=== PATIENT | male | born 1945 | race African-American/Black ===

== ENCOUNTER 2017-06-14 16:58 | Inpatient (IN) | payer BC, MEDICARE ==
[2017-06-14 17:48] LABS: #Eosinphils 0.2 thou/uL (0.0-0.7); #Lymphocytes 1.4 thou/uL (1.20-3.40); #Monocytes 0.5 thou/uL (0.11-0.59); #Neutrophils 4.3 thou/uL (1.40-6.50); %Basophils 0.5 % (0.0-1.0); %Eosinophils 2.4 % (0.0-10.0); %Lymphocytes 22.2 % (21.0-51.0); %Monocytes 7.7 % (0.0-10.0); Hematocrit 31.5 % (42.0-52.0); Mean Platelet Volume 7.7 fL (7.4-10.4); Red Blood Cell (RBC) Count 3.18 mill/uL (4.70-6.10); White Blood Cell (WBC) Count 6.3 thou/uL (4.8-10.8)
[2017-06-14 18:13] LABS: CK (CPK) 78 U/L (30-200); Lipase 91 U/L (8-78)
[2017-06-14 18:17] LABS: Troponin I 0.058 ng/mL (< 0.028)
[2017-06-14 18:18] LABS: ALT (SGPT) 16 U/L (8-55); AST (SGOT) 7 U/L (5-34); Alkaline Phosphatase 52 U/L (40-150); Anion Gap 25 mmol/L (10-20); BUN (Urea Nitrogen) 65 mg/dL (8.4-25.7); Bilirubin, Total 0.8 mg/dL (0.2-1.2); Calc. Creatinine Clearance 0 mL/min (70-130); Calcium 8.5 mg/dL (7.8-10.44); Carbon Dioxide 23 mmol/L (23-31); Chloride 101 mmol/L (98-107); Estimated GFR-MDRD 3; Protein, Total 6.7 g/dL (5.8-8.1)
[2017-06-14 18:45] LABS: Prothrombin Time 14.2 SEC (12.0-14.7)
[2017-06-14 18:46] LABS: PTT 27.2 SEC (22.9-36.1)
--- NOTE | 2017-06-14 19:11 | RAD ---
SINGLE VIEW OF THE CHEST: 06/14/17 COMPARISON: 10/15/14 HISTORY: Weakness. FINDINGS: Single view of the chest shows a normal sized cardiomediastinal silhouette. There is no evidence of consolidation, mass, or pleural effusion. The bones are unremarkable. IMPRESSION: No evidence of acute cardiopulmonary disease. POS: [facility]
--- NOTE | 2017-06-14 20:12 | PDOC.EVN ---
Event Note - Event Note Event Note: [id number] h&p dictated 1. ESRD 2. H/O HTN 3. AOCD 4. Secondary hyperparathyroidism plan: see orders
[2017-06-14] MEDS ORDERED: Acetaminophen 325 MG TAB PO PRN ×2 (20:13→23:44)
[2017-06-14] MEDS ORDERED: Ondansetron HCl/PF 4 MG/2 ML Vial IVP PRN (20:13)
[2017-06-14] MEDS ORDERED: Tamsulosin HCl 0.4 MG CAP PO SCH ×2 (21:00→23:59)
[2017-06-14] MEDS: Heparin 5,000 UNITS/ML VIAL SC SCH (23:20)
[2017-06-14] MEDS: Mirtazapine 15 MG TAB PO SCH (23:20)
[2017-06-14] MEDS ORDERED: HYDROcodone/Acetaminophen 5/325 mg Tablet PO PRN (23:44)
[2017-06-14] MEDS ORDERED: Lorazepam 2 MG/ML VIAL SLOW IVP PRN (23:44)
[2017-06-14] MEDS ORDERED: Zolpidem Tartrate 5 MG TAB PO PRN (23:44)
[2017-06-14] MEDS ORDERED: Ondansetron ODT 4 MG TAB PO PRN (23:44)
--- NOTE | 2017-06-15 04:27 | HP ---
PRIMARY CARE PHYSICIAN: Dr. Josh Pollock CHIEF COMPLAINT: Decrease in appetite, metallic taste in my mouth and peritoneal dialysis is not angelo fficient. HISTORY OF PRESENT ILLNESS: Mr. Hutton is a 71-year-old gentleman that has a history of end-stage re nal disease on peritoneal dialysis. He also has a history of hypertension and atrial fibrillation o n chronic anticoagulation. He was in his usual state of health until recently when he began having a metallic taste in his mouth as well as a poor appetite. He also says that his global climate change analyst says t hat the peritoneal dialysis was not clearing his system the way it should and wants him to be conver jinny to hemodialysis. He had some routine lab work done and Dr. Mckinley asked that he be admitted. The patient says that he has no other complaints. He denies feeling weak as it was stated in the em ergency room records and was actually quite upset that that was listed, but says mainly it was prima rily the metallic taste in his mouth. REVIEW OF SYSTEMS: CONSTITUTIONAL: There have been no fevers, chills, no night sweats, no weight loss. HEENT: No headaches, no dizziness, no visual changes, no sore throat, rhinorrhea, neck pain, no rosa nopathy. PULMONARY: No hemoptysis, no cough, no wheezing. CARDIOVASCULAR: He denies any chest pain, no shortness of breath, no PND, no orthopnea. GASTROINTESTINAL: No abdominal pain, no nausea, no vomiting, no change in bowels. GENITOURINARY: No urinary frequency, hematuria or hesitancy. NEUROLOGIC: No focal weakness, numbness or seizures. PSYCHIATRIC: No symptoms of anxiety or depression. SKIN AND INTEGUMENT: No skin changes. No rash. PAST MEDICAL HISTORY: Significant for BPH, hypertension, atrial fibrillation, end-stage renal disea se on hemodialysis. PAST SURGICAL HISTORY: He has right knee surgery, tonsillectomy. SOCIAL HISTORY: He is . He is a non-smoker, nondrinker. He has 4 children. ALLERGIES: No known drug allergies. FAMILY HISTORY: No history of any inheritable diseases. MEDICATIONS: He stated they were in the records and these include Eliquis 2.5 mg once a day, mirtaz apine 15 mg daily, Avodart 0.5 mg daily, Fosrenol 1000 mg 3 times a day, Renvela 800 mg twice a day, Dialyvite 800 mg daily, metoprolol extended release 25 mg daily, vitamin D 77/400 daily, Sensipar 6 0 mg daily, Calcitriol 0.5 mg daily. PHYSICAL EXAMINATION: GENERAL: He is alert and oriented. He appears to be in no distress. VITAL SIGNS: Blood pressure was 116/65, heart rate 105, respiratory rate of 18. HEENT: Pupils are equal, round, and reactive. Extraocular muscles are intact. Sclerae are anicter ic. Throat no erythema, no exudates. NECK: No adenopathy, no bruits. LUNGS: Clear, no wheezing, no rales. CARDIOVASCULAR: His heart rate is irregular, slightly tachycardic. There are no murmurs, clicks or rubs. ABDOMEN: Soft, obese, it is nontender, nondistended. Positive for bowel sounds. No rebound, no gu arding. EXTREMITIES: There is no edema. NEUROLOGICALLY: The exam is nonfocal. SIGNIFICANT LABORATORY RESULTS: Sodium 144, potassium 4.9, chloride is 105, CO2 is 23, BUN 55, crea tinine 17.69, glucose is 91. White blood cell count 6.3, hemoglobin 10.5, hematocrit 31.5, platelet count is 253. INR is 1.1. ASSESSMENT AND PLAN: This is a 71-year-old gentleman who his global climate change analyst wishes to place him on he modialysis. We will therefore admit him to the medical floor. [facility] and [facility] Dr. Aden in the a.m. for a temporary dialysis catheter placement. The patient say s his last doses of Xarelto was about 2 or 3 days ago. He says he had not been taking it. We will continue to hold this until after the procedure and will also restart his other home medications for hypertension and BPH post procedure as well. In the interim, we will place him on p.r.n. medicatio ns for blood pressure.
[2017-06-15 04:42] LABS: #Eosinphils 0.1 thou/uL (0.0-0.7); #Lymphocytes 1.5 thou/uL (1.20-3.40); #Monocytes 0.6 thou/uL (0.11-0.59); #Neutrophils 3.8 thou/uL (1.40-6.50); %Basophils 0.8 % (0.0-1.0); %Eosinophils 1.9 % (0.0-10.0); %Lymphocytes 24.9 % (21.0-51.0); %Monocytes 9.1 % (0.0-10.0); Hematocrit 27.8 % (42.0-52.0); Mean Platelet Volume 7.4 fL (7.4-10.4); Red Blood Cell (RBC) Count 2.81 mill/uL (4.70-6.10)
[2017-06-15 05:07] LABS: Anion Gap 25 mmol/L (10-20); BUN (Urea Nitrogen) 73 mg/dL (8.4-25.7); BUN/Creatinine Ratio 3.94; Calc. Creatinine Clearance 7 mL/min (70-130); Calcium 8.1 mg/dL (7.8-10.44); Carbon Dioxide 25 mmol/L (23-31); Chloride 100 mmol/L (98-107); Estimated GFR-MDRD 3
[2017-06-15 05:20] LABS: Phosphorus 9.4 mg/dL (2.3-4.7)
--- NOTE | 2017-06-15 06:20 | HP ---
DATE OF ADMISSION: 06/14/2017 CHIEF COMPLAINT: Abnormal labs. HISTORY OF PRESENT ILLNESS: The patient is 71-year-old male with past medical history of end-stage renal disease on peritoneal dialysis, now brought to the hospital because of abnormal labs. According to the patient, he has decreased KT/V for the PD so the patient was brought to the hospital for initiation of hemodialysis. Patient complains of metallic taste in the mouth for the past few weeks and also complains of loss of appetite and nausea. Denies any dyspnea. Denies any chest pain, denies any palpitations, denies any swelling of the lower extremities. Denies any dizziness. PAST MEDICAL HISTORY: ESRD, hypertension, secondary hyperparathyroidism, anemia of chronic disease. SOCIAL HISTORY: Denies smoking, denies alcohol, denies any drugs. PAST SURGICAL HISTORY: PD catheter placement. MEDICATIONS: Reviewed. ALLERGIES: No known drug history. REVIEW OF SYSTEMS: CONSTITUTIONAL: Positive for fatigue. EYES: Denies any problems. EARS AND NOSE: Negative. NECK: Denies any neck pain. CARDIOVASCULAR: Denies any chest pain, denies palpitations. RESPIRATORY: Denies any dyspnea. Denies any cough. GASTROINTESTINAL: Positive for nausea. GENITOURINARY: Denies dysuria. MUSCULOSKELETAL: Denies any joint deformities. INTEGUMENTARY: Denies any rash. PSYCHIATRIC: Denies anxiety. All other review of systems are reviewed and are negative. PHYSICAL EXAMINATION: CONSTITUTIONAL/VITAL SIGNS: At the time of H\T\P performed, blood pressure is 120/70, afebrile, respiration rate 18, pulse ox 97% on room air. GENERAL: The patient appears comfortable. HEENT: Eyes patent. Nose normal. Ears normal. Teeth intact. Tongue is moist. NECK: Supple, no JVD. CARDIOVASCULAR SYSTEM: S1, S2 present, tachycardic. No murmurs, no rubs, no gallops. RESPIRATORY SYSTEM: No wheezing, no rhonchi. Breath sounds bilaterally, diminished at bases. GASTROINTESTINAL: Soft, nontender, no guarding, no organomegaly, no masses felt. Positive for PD catheter. MUSCULOSKELETAL: Trace edema. PSYCHIATRIC: Mood appears good. CRANIAL NERVE SYSTEM: Awake, follows commands. Speech clear. LABORATORY DATA: At the time of H\T\P performed; white count 6.3, hemoglobin 10.5, platelet count 253. PT 14.0, INR 1.1. BMP showed sodium 144, potassium 4.9, chloride 101, CO2 23, BUN of 65, creatinine 7.69. Troponin 0.058. Lipase 91. ASSESSMENT AND PLAN: The patient is 71-year-old male. 1. End-stage renal disease, plan to consult Nephrology to evaluate the patient and possible Vascular Surgery consult for the hemodialysis catheter. 2. History of hypertension. Monitor blood pressure. Continue blood pressure medications. 3. Anemia of chronic disease. Monitor hemoglobin and continue MONTEZ agent. 4. Secondary hyperparathyroidism. Continue home medications. Renal diet. 5. History of benign prostatic hypertrophy. Continue Flomax. The case was discussed in detail with the patient. [facility]
[2017-06-15] MEDS: Sevelamer Carbonate 800 MG TAB PO SCH ×3 (08:00→21:05)
[2017-06-15] MEDS ORDERED: Sevelamer Carbonate 800 MG TAB PO SCH (08:00)
--- NOTE | 2017-06-15 08:15 | HP ---
HISTORY OF PRESENT ILLNESS: Mr. Michael Hutton is a 71-year-old male patient who is on peritoneal linda lysis, has previously been associated with [facility] in [place], previously dialyzing Tuesday, , Tuesday prior to starting peritoneal dialysis. The patient had a right arm fistula that was placed in 09/2014 that thrombosed and this was converted on 12/2014 to dialysis graft inflow ce phalic vein segment from the proximal radial artery. That thrombosed and on 01/28/2015, I performed a thrombectomy, right arm graft revision arterial inflow from the proximal radial artery to the bra chial artery. He had subsequent interventions with problems in axillary vein graft anastomosis. He was converted to peritoneal dialysis with a laparoscopic peritoneal dialysis catheter placement, le ft Rodriguez fistula placed. This Rodriguez fistula thrombosed. He is now admitted by Dr. Mckinley with i nadequate peritoneal dialysis. I have been asked to see him regarding conversion to hemodialysis. In the emergency room, left antecubital IV was placed. On entering the room, I immediately removed this. Plan at this time is to place a hemodialysis catheter today and then Tuesday, 2 days from now, plan removal of his peritoneal dialysis catheter and place a left arm fistula or prosthetic graft. He understands the risks and benefits and consents. He is unfortunately held his Eliquis in the few days. PAST MEDICAL HISTORY: Hypertension, end-stage renal disease, previously associated [place] dialysis . Cardiomyopathy, ejection fraction 35%-40%, followed Dr. Rahman. On 09/2014, nuclear cardiac stre ss test, 43% ejection fraction, no ischemia. Secondary hyperparathyroidism, chronic atrial fibrilla tion on anticoagulation and Eliquis held as noted above, BPH followed by Urology, history of agent o range exposure, history of asthma, morbid obesity. PAST SURGICAL HISTORY: Right arm fistula established and converted to a prosthetic graft with subse quent revisions of arterial inflow from the proximal radial artery to brachial artery, and subsequen t interventions unsuccessful in salvaging the graft exhausting the right upper arm access. Left wri st Rodriguez fistula and laparoscopic peritoneal dialysis catheter placement in the past. Cystoscopies in the past. TOBACCO: None. ALCOHOL: None. MEDICATIONS: Sensipar 60 mg a day, vitamin D 2000 units every day, Calcitriol 0.5 mcg every day, me toprolol 25 mg b.i.d., folic acid daily, Fosrenol 1000 mg t.i.d., Avodart 0.5 mg p.o. daily, Rapaflo 4 mg p.o. a.m., Remeron 15 mg daily, Eliquis 2.5 mg daily and held the last 2 days, Renvela 800 mg p.o. b.i.d. REVIEW OF SYSTEMS: [place] otherwise noncontributory except as noted above. PHYSICAL EXAMINATION: VITAL SIGNS: 6 foot tall, 283 pounds, 38 BMI, 98.5 degrees, 104, 127/78. HEENT: Unremarkable. LUNGS: Clear to auscultation. CARDIAC: Irregular, irregular. ABDOMEN: Soft, obese. Peritoneal dialysis catheter in place. EXTREMITIES: Unremarkable. Left antecubital IV removed. A right upper arm dialysis graft thrombos ed, left Rodriguez fistula thrombosed. LABORATORY DATA: Sodium 145, potassium 4.8, BUN, creatinine, GFR changes of end-stage renal disease , phosphorus 9.4, white count 6, hemoglobin 9.1. ASSESSMENT AND PLAN: Inadequate peritoneal dialysis. We will plan placement of a hemodialysis cath eter today to initiate hemodialysis. We will plan removal of his peritoneal dialysis catheter and s tart from the left arm fistula or graft on Tuesday. We will continue to hold his Eliquis. Risks of infection, bleeding, reoperation, thrombosed fistula or graft, revision, future revisions, possible transposition discussed and he consents.
--- NOTE | 2017-06-15 08:36 | CON ---
DATE OF CONSULTATION: 06/14/2017 CONSULTING PHYSICIAN: Dr. Urban. REASON FOR CONSULTATION: End-stage renal disease evaluation and care. REASON FOR ADMISSION: Weakness. HISTORY OF PRESENT ILLNESS: A 71-year-old male with history of end-stage renal disease, BPH, hypert ension, who came to the hospital with weakness and the patient is having peritoneal dialysis and it is not being adequate and has been complaining more of uremic symptoms including nausea, vomiting, d ry mouth, and poor appetite, and he was sent for further evaluation. The patient possibly needs to switch to hemodialysis for better clearance and plan is to have a dialysis access placement. No chest pain or palpitation reported. No fever or chills. No abdominal pain. PAST MEDICAL HISTORY: Positive for end-stage renal disease, on peritoneal dialysis currently; atria l fibrillation; hypertension; BPH. PAST SURGICAL HISTORY: Dialysis access and graft placement in both arms and peritoneal dialysis cat heter placement; tonsillectomy; right knee surgery. HOME MEDICATIONS: Include Flomax, Renvela, Remeron, metoprolol, [place], folic acid, finasteride, Sen sipar, Eliquis. ALLERGIES: No known drug allergies. SOCIAL HISTORY: No smoking, alcohol, or drug use. FAMILY HISTORY: No history of any kidney disease. REVIEW OF SYSTEMS: The following complete review of systems was negative, unless otherwise mentione d in the HPI or below: Constitutional: Weight loss or gain, ability to conduct usual activities. Skin: Rash, itching. Eyes: Double vision, pain. ENT/Mouth: Nose bleeding, neck stiffness, pain, tenderness. Cardiovascular: Palpitations, dyspnea on exertion, orthopnea. Respiratory: Shortness of breath, wheezing, cough, hemoptysis, fever or night sweats. Gastrointestinal: Poor appetite, abdominal pain, heartburn, nausea, vomiting, constipation, or diar ghazala. Genitourinary: Urgency, frequency, dysuria, nocturia. Musculoskeletal: Pain, swelling. Neurologic/Psychiatric: Anxiety, depression. Allergy/Immunologic: Skin rash, bleeding tendency. PHYSICAL EXAMINATION: GENERAL: This is a well-built male, in no apparent distress. VITAL SIGNS: Temperature 97.9, pulse 106, respiratory rate 18, blood pressure 88/57. HEENT: Atraumatic, normocephalic. Oral mucosa is moist. NECK: Supple, no masses. CARDIOVASCULAR: S1, S2 heard. Rate and rhythm regular. RESPIRATORY: Clear. GASTROINTESTINAL: Abdomen is soft. MUSCULOSKELETAL: 1+ edema. DERMATOLOGIC: No skin rash. NEUROLOGIC: Alert and awake. PSYCHIATRIC: Mood and affect normal. LABORATORY DATA: Hemoglobin is 10.5. Potassium is 4.9, BUN is 65, creatinine is 17.6. ASSESSMENT AND PLAN: 1. End-stage renal disease. The patient had a peritoneal dialysis failure and plan is to start on hemodialysis. Dr. Aden was consulted, plan is to leave him n.p.o. Check vein mapping and possibl e dialysis access placement tomorrow and started on hemodialysis. Case management consult for outpa tient dialysis placement. 2. Edema, controlled. 3. Hypertension, currently hypotensive. Monitor. 4. Anemia. I will continue outpatient medications. 5. Hyperphosphatemia, limit the potassium and phosphorus in the diet. 6. Hyperparathyroidism. Continue Sensipar and we will follow. 7. Benign prostatic hypertrophy. Continue Flomax. Plan is to switch patient to hemodialysis and case management consult. Thank you for the consult. We will follow.
--- NOTE | 2017-06-15 08:44 | ULT ---
BILATERAL UPPER EXTREMITY VENOUS DUPLEX STUDY FOR VENOUS MAPPING: INDICATIONS: Assess adequacy of veins of the upper extremities for possible dialysis fistula placement. The cephalic vein and basilic vein in both upper extremities were evaluated with diameter at differe nt segments. RIGHT UPPER EXTREMITY CEPHALIC BASILIC AXILLA 1.4 mm 1.0 mm PROXIMAL HUMERUS 0.9 mm 1.1 mm MID HUMERUS 1.6 mm 1.1 mm DISTAL HUMERUS 1.7 mm 1.2 mm ELBOW 0.9 mm 1.0 mm MID FOREARM 1.3 mm 0.7 mm RIGHT BRACHIAL ARTERY: 5.9 RIGHT RADIAL ARTERY: 2.3 RIGHT ULNAR ARTERY: 1.5 LEFT UPPER EXTREMITY CEPHALIC BASILIC AXILLA 2.2 mm 4.6 mm PROXIMAL HUMERUS 2.5 mm 4.5 mm MID HUMERUS 3.0 mm 3.7 mm DISTAL HUMERUS THROMBOSED 3.0 mm ELBOW 2.8 mm 1.2 mm MID FOREARM 2.9 mm 2.5 mm LEFT BRACHIAL ARTERY: 4.5 LEFT RADIAL ARTERY: 2.8 LEFT ULNAR ARTERY: 1.8 POS: [facility]
[2017-06-15] MEDS: Heparin 5,000 UNITS/ML VIAL SC SCH ×3 (09:00→21:07)
[2017-06-15] MEDS ORDERED: Finasteride 5 MG TAB PO SCH (09:00)
[2017-06-15] MEDS ORDERED: Cinacalcet HCl 30 MG TAB PO SCH (09:00)
[2017-06-15] MEDS ORDERED: Heparin 5,000 UNITS/ML VIAL ONE (09:16)
[2017-06-15] MEDS ORDERED: Bupivacaine HCl 0.5%/Epinephrine 1:200,000/PF 30 ml Vial ONE (09:16)
[2017-06-15] MEDS ORDERED: Sodium Chloride 0.9% 20 ML ONE (09:16)
[2017-06-15] MEDS ORDERED: Fentanyl 100 MCG/2 ML VIAL ONE (09:19)
[2017-06-15] MEDS ORDERED: Diprivan 40 ML ONE (09:19)
[2017-06-15] MEDS ORDERED: Heparin 10,000 UNITS/1 ML VIAL ONE (09:22)
[2017-06-15] MEDS ORDERED: Lidocaine 1% PF 5 ML VIAL ONE (09:41)
[2017-06-15] MEDS ORDERED: ePHEDrine/0.9% NaCl/PF SYRINGE 50 mg/10 ml ONE (09:41)
[2017-06-15] MEDS ORDERED: PHENYLEPHRINE-NS 100 MCG/ML 10 ML SYRINGE ONE (09:41)
[2017-06-15] MEDS ORDERED: Ondansetron HCl/PF 4 MG/2 ML Vial ONE (09:41)
[2017-06-15] MEDS ORDERED: Ondansetron HCl/PF 4 MG/2 ML Vial IVP PRN (09:59)
[2017-06-15] MEDS ORDERED: Acetaminophen 500 MG TAB PO PRN (10:42)
[2017-06-15] MEDS ORDERED: traMADol HCl 50 MG TAB PO PRN ×2 (10:42)
[2017-06-15] MEDS ORDERED: Heparin 10,000 UNITS/ 10 ML VIAL ONE (11:00)
--- NOTE | 2017-06-15 11:37 | OP ---
DATE OF PROCEDURE: 06/15/2017 PREOPERATIVE DIAGNOSIS: End-stage renal disease, peritoneal dialysis status with inadequate periton eal dialysis. POSTOPERATIVE DIAGNOSIS: End-stage renal disease, peritoneal dialysis status with inadequate perito dale dialysis with occluded right internal jugular vein outflow, retroclavicular. PROCEDURE: Successful cannulation right internal jugular vein using ultrasound, but the J wire woul d not thread. Successful left IJ cuffed tunnel hemodialysis catheter, angiodynamics, dynamics precu rved, ultrasound fluoroscopy used for placement. SURGEON: Dr. Rashi Aden ANESTHESIA: Intravenous sedation and local 0.5% Marcaine with epinephrine, 30 mL, mixed with 2% Xyl ocaine, 10 mL. PROCEDURE: The patient was taken to the operating room where under intravenous sedation, his neck a nd chest were clipped of hair, prepared with chloraprep, draped in routine fashion. Local anestheti c mixture 0.5% Marcaine with epinephrine 30 mL, mixed with 2% Xylocaine 10 mL infiltrated into skin and subcutaneous tissue about the operative sites. Using ultrasound guidance, right internal jugula r vein was cannulated with trocar catheter. J-wire threaded, but would not thread beyond retroclavi cular area, indicative of occlusion from previous catheters. Left internal jugular vein was cannula jinny with trocar catheter. Under ultrasound guidance and J-wire threaded. Trocar catheter removed. Skin incised and enlarged sharply. Stab incision made over the left chest. Using the tunneling de vice, the precurved angiodynamics cuffed tunnel hemodialysis catheter tunneled between the two incis ions, placing the fabric cuff beneath the skin exit site and catheter secured with 2 interrupted sut ures of 3-0 nylon. Smaller and medium sized dilators placed over the J-wire into the internal jugul ar vein and removed. Dilator and pull-away sheath placed over the J-wire into the superior vena cav a under fluoroscopic visualization, removed the J wire and dilator and catheter placed with a pull-a way sheath into the superior vena cava under fluoroscopic visualization and pull-away sheath removed . Fluoroscopic images revealed good line placement. Each port aspirated blood and flushed with inj ectable saline and heparinized saline solution 1000 units heparin per mL indicated volume of the por t. Platysma approximated with 4-0 Monocryl, skin with subdermal 4-0 Monocryl and DermaGlue and ster ile dressings applied. Patient tolerated the procedure well. The plan at this time is to remove his peritoneal dialysis catheter in 48 hours on Tuesday and placem ent of a new left fistula. He has had a previous right arm fistula that required revision to a reji t with cephalic vein inflow and revision of that arterial inflow from the proximal radial artery to the brachial vein and then multiple interventions of the graft vein, axillary anastomosis leading to failure of the graft. His right arm is exhausted for dialysis access. He has had a previous left Rodriguez fistula that thrombosed. Plan is to explore his left antecubital area to place a primary fis carito or possibly a prosthetic graft pending operative findings.
--- NOTE | 2017-06-15 12:44 | RAD ---
CHEST ONE VIEW UPRIGHT PORTABLE: History: 71-year-old male on dialysis with left venous access dialysis port placement. Comparison: 06-14-17 FINDINGS: Left dual-lumen venous access catheter is noted. Heart size is normal. The lungs are clear. No pneum othorax or other acute process. IMPRESSION: Placement of a left dual-lumen venous access catheter without pneumothorax or other complications. POS: [facility]
--- NOTE | 2017-06-15 15:28 | PDOC.PN ---
- Subjective Encounter Start Date: 06/15/17 Encounter Start Time: 15:26 Mr. Hutton is seen in dialysis, and he does not have any complaints other than his bed is uncomfortable. - Objective Resuscitation Status: Resuscitation Status FULL:Full Resuscitation MAR Reviewed: Yes Vital Signs & Weight: Vital Signs (12 hours) Temp Pulse Resp BP Pulse Ox 06/15/17 04:20 98.5 F 104 H 20 127/78 93 L Weight Admit Weight 281 lb Weight 283 lb 4.8 oz I&O: 06/14/17 06/15/17 06/16/17 06:59 06:59 06:59 Intake Total 240 Balance 240 Result Diagrams: 06/15/17 04:14 06/15/17 04:14 Phys Exam - Physical Examination HEENT: PERRLA Respiratory: no wheezing, no rales, no rhonchi, clear to auscultation bilateral Cardiovascular: RRR, no significant murmur Gastrointestinal: soft, positive bowel sounds Musculoskeletal: no edema Dx/Plan (1) Hypertension Code(s): I10 - ESSENTIAL (PRIMARY) HYPERTENSION Status: Acute (2) BPH (benign prostatic hyperplasia) Code(s): N40.0 - BENIGN PROSTATIC HYPERPLASIA WITHOUT LOWER URINRY TRACT SYMP Status: Acute (3) ESRD (end stage renal disease) on dialysis Code(s): N18.6 - END STAGE RENAL DISEASE; Z99.2 - DEPENDENCE ON RENAL DIALYSIS Status: Acute (4) Atrial fibrillation Code(s): I48.91 - UNSPECIFIED ATRIAL FIBRILLATION Status: Acute - Plan * ESRD- patient is being transitioned to Hemodialysis from PD * He has had the temporary dialysis catheter placed * HTN - blood pressure is stable * AFIB- heart rate is stable .
[2017-06-15] MEDS: Folic Acid/Vit B Comp W-C PO SCH (17:09)
[2017-06-15] MEDS: Famotidine 20 MG TAB PO SCH (17:09)
[2017-06-15] MEDS: Cinacalcet HCl 30 MG TAB PO SCH (17:09)
[2017-06-15] MEDS: Finasteride 5 MG TAB PO SCH (17:14)
[2017-06-15] MEDS: Tamsulosin HCl 0.4 MG CAP PO SCH (21:07)
[2017-06-15] MEDS: Mirtazapine 15 MG TAB PO SCH (21:07)
--- NOTE | 2017-06-15 22:01 | PRG ---
DATE OF SERVICE: 06/15/2017 SUBJECTIVE: Patient was seen and examined at bedside and overnight events noted. Patient denies an y shortness of breath or chest pain or palpitation. No history of nausea or vomiting or diarrhea or fever or chills or cramps. OBJECTIVE: GENERAL: This is a well-built male in no apparent distress. VITAL SIGNS: Temperature 97.5. Pulse 105. Respiratory rate 17. Blood pressure 124/85. HEENT: Atraumatic and normocephalic. Oral mucosa is moist. NECK: Supple. CARDIOVASCULAR: S1, S2 heard. Rate and rhythm regular. RESPIRATORY: Clear to auscultation. GASTROINTESTINAL: Abdomen is soft. MUSCULOSKELETAL: No tenderness. No edema. DERMATOLOGIC: No skin rash. NEUROLOGIC: Alert and awake and oriented x3. No focal neurologic deficits. Moving all the extremi ties. PSYCHIATRIC: Mood and affect normal. LABORATORY DATA: Potassium is 4.8, phosphorus is 9.4, and BUN 73. ASSESSMENT AND PLAN: 1. End-stage renal disease with peritoneal dialysis failure. Plan is to start on hemodialysis. I appreciate help from Surgery. The patient had tunneled dialysis catheter today. Plan is to remove peritoneal dialysis catheter and possibly place a graft on his left arm on Tuesday. We will start on dialysis. 2. Uremia. We will start dialysis. 3. Hyperphosphatemia. Continue binder and low phosphorus diet. The patient is noncompliant and is asking for a regular diet. 4. Hyperparathyroidism, on Sensipar. 5. Benign prostatic hypertrophy. 6. Edema, controlled. 7. Hypertension. We will monitor. 8. Anemia. Continue Epogen as tolerated. 9. Plan is to continue on dialysis on Tuesday, , Tuesday. We will have dialysis 3 hours t denny and tomorrow and then TTS as tolerated. Request case management arranged outpatient dialysis clarissa lyn.
[2017-06-16] MEDS: Heparin 5,000 UNITS/ML VIAL SC SCH ×3 (09:19→21:59)
[2017-06-16] MEDS: Folic Acid/Vit B Comp W-C PO SCH (09:20)
[2017-06-16] MEDS: Cinacalcet HCl 30 MG TAB PO SCH (09:20)
[2017-06-16] MEDS: Famotidine 20 MG TAB PO SCH (09:20)
[2017-06-16] MEDS: Finasteride 5 MG TAB PO SCH (09:21)
[2017-06-16] MEDS: Sevelamer Carbonate 800 MG TAB PO SCH ×3 (09:24→17:28)
--- NOTE | 2017-06-16 11:20 | PDOC.PN ---
- Subjective Encounter Start Date: 06/16/17 Encounter Start Time: 09:45 Pt seen and examined, Chart reviewe din its entriety. Diamond sis my first visit with this patient. Pt on the telephone with the [employer]/ Affairs. No acute events overnight, no new complaints. Permcath in place, to HD later this morning, no F/C, no N/V/d/C, no CP, no SOB - Objective Resuscitation Status: Resuscitation Status FULL:Full Resuscitation MAR Reviewed: Yes Vital Signs & Weight: Vital Signs (12 hours) Temp Pulse Resp BP Pulse Ox 06/16/17 10:15 97.8 F 96 20 137/78 100 06/16/17 04:00 97.8 F 89 18 91/45 L 90 L 06/16/17 00:00 98.9 F 84 20 98/57 L 95 Weight Admit Weight 281 lb Weight 283 lb I&O: 06/15/17 06/16/17 06/17/17 06:59 06:59 06:59 Intake Total 240 600 Output Total 1200 Balance 240 -600 Result Diagrams: 06/15/17 04:14 06/15/17 04:14 Radiology Reviewed by me: Yes EKG Reviewed by me: Yes Phys Exam - Physical Examination Constitutional: NAD HEENT: PERRLA, moist MMs, sclera anicteric, oral pharynx no lesions Neck: no nodes, no JVD, supple, full ROM Respiratory: no wheezing, no rales, no rhonchi Cardiovascular: RRR, no significant murmur, no rub Gastrointestinal: soft, non-tender, no distention, positive bowel sounds Musculoskeletal: pulses present, edema present Neurological: non-focal, normal sensation, moves all 4 limbs Lymphatic: no nodes Psychiatric: normal affect, A&O x 3 Skin: no rash, normal turgor, cap refill <2 seconds Deviation from normal: [facility] site C/D/I Dx/Plan (1) Atrial fibrillation Code(s): I48.91 - UNSPECIFIED ATRIAL FIBRILLATION Status: Acute Qualifiers: Atrial fibrillation type: paroxysmal Qualified Code(s): I48.0 - Paroxysmal atrial fibrillation Comment: rate controlled, CCM (2) BPH (benign prostatic hyperplasia) Code(s): N40.0 - BENIGN PROSTATIC HYPERPLASIA WITHOUT LOWER URINRY TRACT SYMP Status: Chronic Qualifiers: Lower urinary tract symptom presence: symptoms present Lower urinary tract symptom detail: incomplete bladder emptying Qualified Code(s): N40.1 - Benign prostatic hyperplasia with lower urinary tract symptoms; R39.14 - Feeling of incomplete bladder emptying (3) Hypertension Code(s): I10 - ESSENTIAL (PRIMARY) HYPERTENSION Status: Chronic Qualifiers: Hypertension type: essential hypertension Qualified Code(s): I10 - Essential (primary) hypertension (4) Cardiomyopathy Code(s): I42.9 - CARDIOMYOPATHY, UNSPECIFIED Status: Chronic Qualifiers: Cardiomyopathy type: non-obstructive hypertrophic Qualified Code(s): I42.2 - Other hypertrophic cardiomyopathy (5) ESRD (end stage renal disease) on dialysis Code(s): N18.6 - END STAGE RENAL DISEASE; Z99.2 - DEPENDENCE ON RENAL DIALYSIS Status: Acute Comment: was on PD, now trnasitioning to HD. Case management arranging outpatient HD, Dr Mckinley following, will followup on their recommendaitons - Plan cont current plan of care, PT/OT, director social welfare * .
--- NOTE | 2017-06-16 18:41 | PRG ---
DATE OF SERVICE: 06/16/2017 Mr. Michael Hutton is doing well today. He is scheduled for placement of left arm fistula or graft. We were planning to remove his peritoneal dialysis catheter. The patient has reconsidered and is ho ping to keep it for a while, open to return, possibly the PD in the future, he is to talk to Dr. Joe ontiveros who is agreeable.
[2017-06-16] MEDS ORDERED: Epoetin (ESRD) 20,000 UNITS/ML IVP SCH (19:00)
[2017-06-16] MEDS: Mirtazapine 15 MG TAB PO SCH (21:58)
[2017-06-16] MEDS: Tamsulosin HCl 0.4 MG CAP PO SCH (21:59)
--- NOTE | 2017-06-16 22:00 | PRG ---
DATE OF SERVICE: 06/16/2017 SUBJECTIVE: Patient was seen and examined at bedside and overnight events noted. Patient denies any shortness of breath or chest pain or palpitation. No history of nausea or vomiting or diarrhea or fever or chills or cramps. OBJECTIVE: GENERAL: This is a well built male in no apparent distress. VITAL SIGNS: Temperature 97.8, pulse 96, respiratory rate 20, blood pressure 137/70. HEENT: Atraumatic, normocephalic. Oral mucosa is moist. NECK: Supple. CARDIOVASCULAR: S1 and S2 heard, rate and rhythm regular. RESPIRATORY: Clear to auscultation. GASTROINTESTINAL: Abdomen is soft. MUSCULOSKELETAL: No tenderness, no edema. DERMATOLOGIC: No skin rash. NEUROLOGIC: Alert and awake and oriented X3. No focal neurologic deficits. Moving all the extremities. PSYCHIATRIC: Mood and affect normal. LABORATORY DATA: Potassium is 4.8, BUN 73, creatinine is 18.4. ASSESSMENT AND PLAN: 1. End-stage renal disease. Continue on hemodialysis. 2. Uremia, better. 3. Hyperphosphatemia, limit phosphorus in the diet. 4. Benign prostatic hypertrophy. 5. Edema, controlled. 6. Hypertension. 7. Secondary hyperparathyroidism, continue on Sensipar. 8. Plan is to continue on dialysis as tolerated. Plan is to have dialysis today and then Tuesday, , and Tuesday as tolerated. Follow with case management for outpatient placement. [facility]
[2017-06-17 05:19] LABS: Anion Gap 16 mmol/L (10-20); BUN (Urea Nitrogen) 28 mg/dL (8.4-25.7); Calc. Creatinine Clearance 15 mL/min (70-130); Calcium 8.3 mg/dL (7.8-10.44); Carbon Dioxide 25 mmol/L (23-31); Chloride 103 mmol/L (98-107); Estimated GFR-MDRD 8
[2017-06-17] MEDS: Sevelamer Carbonate 800 MG TAB PO SCH ×3 (08:00→17:31)
[2017-06-17] MEDS: Cinacalcet HCl 30 MG TAB PO SCH ×2 (09:00→17:31)
[2017-06-17] MEDS: Famotidine 20 MG TAB PO SCH (09:00)
[2017-06-17] MEDS: Folic Acid/Vit B Comp W-C PO SCH (09:00)
[2017-06-17] MEDS: Heparin 5,000 UNITS/ML VIAL SC SCH ×3 (09:00→20:27)
[2017-06-17] MEDS: Finasteride 5 MG TAB PO SCH (09:00)
[2017-06-17] MEDS ORDERED: Fentanyl 100 MCG/2 ML VIAL ONE ×2 (09:46→10:32)
[2017-06-17] MEDS ORDERED: Midazolam HCl 2 mg/2 ml Vial ONE (09:46)
[2017-06-17] MEDS ORDERED: Protamine Sulfate 50 MG/5 ML VIAL ONE (10:26)
[2017-06-17] MEDS ORDERED: Bupivacaine HCl 0.5%/Epinephrine 1:200,000/PF 30 ml Vial ONE (10:26)
[2017-06-17] MEDS ORDERED: Heparin 5,000 UNITS/ML VIAL ONE (10:26)
[2017-06-17] MEDS ORDERED: Diprivan 60 ML ONE (10:45)
--- NOTE | 2017-06-17 10:49 | PDOC.PN ---
- Subjective Encounter Start Date: 06/17/17 Encounter Start Time: 09:00 -: old records requested/rev Patient seen and examined. No new complaints. No overnight events - Objective Resuscitation Status: Resuscitation Status FULL:Full Resuscitation MAR Reviewed: Yes Vital Signs & Weight: Vital Signs (12 hours) Temp Pulse Resp BP Pulse Ox 06/17/17 08:17 97.7 F 89 18 99/67 92 L 06/17/17 06:50 98.5 F 109 H 20 125/72 99 06/17/17 00:00 98.3 F 96 18 106/66 93 L Weight Admit Weight 281 lb Weight 283 lb I&O: 06/16/17 06/17/17 06/18/17 06:59 06:59 06:59 Intake Total 600 240 Output Total 1200 Balance -600 240 Result Diagrams: 06/15/17 04:14 06/17/17 04:43 Phys Exam - Physical Examination Constitutional: NAD HEENT: PERRLA, moist MMs, sclera anicteric Neck: no JVD, supple Respiratory: no wheezing, no rales, no rhonchi Cardiovascular: RRR, no significant murmur, no rub HD catheter+ Gastrointestinal: soft, non-tender, no distention, positive bowel sounds PD catheter + Musculoskeletal: no edema, pulses present Neurological: non-focal, normal sensation Lymphatic: no nodes Psychiatric: normal affect, A&O x 3 Skin: no rash, normal turgor Dx/Plan (1) Anemia of renal disease Code(s): D63.1 - ANEMIA IN CHRONIC KIDNEY DISEASE Status: Chronic (2) Atrial fibrillation Code(s): I48.91 - UNSPECIFIED ATRIAL FIBRILLATION Status: Chronic Qualifiers: Atrial fibrillation type: paroxysmal Qualified Code(s): I48.0 - Paroxysmal atrial fibrillation Comment: rate controlled, CCM (3) BPH (benign prostatic hyperplasia) Code(s): N40.0 - BENIGN PROSTATIC HYPERPLASIA WITHOUT LOWER URINRY TRACT SYMP Status: Chronic Qualifiers: Lower urinary tract symptom presence: symptoms present Lower urinary tract symptom detail: incomplete bladder emptying Qualified Code(s): N40.1 - Benign prostatic hyperplasia with lower urinary tract symptoms; R39.14 - Feeling of incomplete bladder emptying (4) Cardiomyopathy Code(s): I42.9 - CARDIOMYOPATHY, UNSPECIFIED Status: Chronic Qualifiers: Cardiomyopathy type: non-obstructive hypertrophic Qualified Code(s): I42.2 - Other hypertrophic cardiomyopathy (5) ESRD (end stage renal disease) on dialysis Code(s): N18.6 - END STAGE RENAL DISEASE; Z99.2 - DEPENDENCE ON RENAL DIALYSIS Status: Chronic Comment: was on PD, now trnasitioning to HD. Case management arranging outpatient HD, Dr Mckinley following, will followup on their recommendaitons (6) Hypertension Code(s): I10 - ESSENTIAL (PRIMARY) HYPERTENSION Status: Chronic Qualifiers: Hypertension type: essential hypertension Qualified Code(s): I10 - Essential (primary) hypertension (7) Obesity (BMI 30-39.9) Code(s): E66.9 - OBESITY, UNSPECIFIED Status: Chronic (8) Secondary hyperparathyroidism of renal origin Code(s): N25.81 - SECONDARY HYPERPARATHYROIDISM OF RENAL ORIGIN Status: Chronic - Plan cont current plan of care, delinquency prevention social worker * pt is now from PD to HD * today plan for AVF * tomorrow he can have outpt HD * if surgeon ok, we can discharge later today * medication reviewed as below * symptomatic treatment.. Review of Systems - Review of Systems ENT: negative: Ear Pain, Ear Discharge, Nose Pain, Nose Discharge, Nose Congestion, Mouth Pain, Mouth Swelling, Throat Pain, Throat Swelling, Other Respiratory: negative: Cough, Dry, Shortness of Breath, Hemoptysis, SOB with Excertion, Pleuritic Pain, Sputum, Wheezing Cardiovascular: negative: Chest Pain, Palpitations, Orthopnea, Paroxysmal Noc. Dyspnea, Edema, Light Headedness, Other Gastrointestinal: negative: Nausea, Vomiting, Abdominal Pain, Diarrhea, Constipation, Melena, Hematochezia, Other Genitourinary: negative: Dysuria, Frequency, Incontinence, Hematuria, Retention , Other Musculoskeletal: negative: Neck Pain, Shoulder Pain, Arm Pain, Back Pain, Hand Pain, Leg Pain, Foot Pain, Other - Medications/Allergies Allergies/Adverse Reactions: Allergies Allergy/AdvReac Type Severity Reaction Status Date / Time No Known Allergies Allergy Verified 06/14/17 22:51 Medications: Current Medications Acetaminophen (Tylenol) 650 mg PO Q4H PRN PRN Reason: Headache/Fever or Pain Acetaminophen (Tylenol) 1,000 mg PO Q6H PRN PRN Reason: Moderate to Severe Pain (6-10) Hydrocodone Bitart/Acetaminophen ([place] 5/325) 1 tab PO Q4H PRN PRN Reason: Moderate Pain (4-6) Cefazolin Sodium (Ancef) 2 gm SLOW IVP WILLCALL [facility] Stop: 06/17/17 23:59 Cinacalcet (Sensipar) 30 mg PO DAILY [facility] Last Admin: 06/16/17 09:20 Dose: 30 mg Epoetin Jose (Procrit) 5,000 units IVP TuThSa [facility] Last Admin: 06/16/17 18:14 Dose: 5,000 units Famotidine (Pepcid) 20 mg PO DAILY [facility] Last Admin: 06/16/17 09:20 Dose: 20 mg Finasteride (Proscar) 5 mg PO DAILY [facility] Last Admin: 06/16/17 09:21 Dose: Not Given Heparin Sodium (Porcine) (Heparin) 5,000 units SC TID [facility] Last Admin: 06/16/17 21:59 Dose: Not Given Hydralazine HCl (Apresoline) 10 mg SLOW IVP Q4H PRN PRN Reason: Systolic BP > 180 Lactulose (Lactulose) 20 gm PO DAILYPRN PRN PRN Reason: Constipation Lorazepam (Ativan) 0.5 mg SLOW IVP Q4H PRN PRN Reason: Anxiety/Agitation Metoprolol Succinate (Toprol Xl) 25 mg PO DAILY [facility] Last Admin: 06/17/17 05:47 Dose: 25 mg Mirtazapine (Remeron) 15 mg PO [facility] Last Admin: 06/16/17 21:58 Dose: 15 mg Ondansetron HCl (Zofran) 4 mg IVP Q6H PRN PRN Reason: Nausea/Vomiting Last Admin: 06/17/17 06:34 Dose: 4 mg Ondansetron HCl (Zofran Odt) 4 mg PO Q6H PRN PRN Reason: Nausea/Vomiting Sevelamer Carbonate (Renvela) 1,600 mg PO TID-[facility] Last Admin: 06/16/17 17:28 Dose: Not Given Tamsulosin HCl (Flomax) 0.4 mg PO [facility] Last Admin: 06/16/17 21:59 Dose: Not Given Tramadol HCl (Ultram) 50 mg PO Q12H PRN PRN Reason: Pain 1-5 Tramadol HCl (Ultram) 100 mg PO Q12H PRN PRN Reason: Pain 6-10 Vitamin B Complex/Vit C/Folic Acid (Nephro-Josy Tablet) 1 tab PO DAILY [facility] Last Admin: 06/16/17 09:20 Dose: 1 tab Zolpidem Tartrate (Ambien) 5 mg PO HSPRN PRN PRN Reason: Insomnia
[2017-06-17] MEDS ORDERED: PHENYLEPHRINE-NS 100 MCG/ML 10 ML SYRINGE ONE (11:21)
[2017-06-17] MEDS ORDERED: ePHEDrine/0.9% NaCl/PF SYRINGE 50 mg/10 ml ONE (11:21)
[2017-06-17 12:00] VITALS: BMI 38.3
[2017-06-17] MEDS ORDERED: Ondansetron HCl/PF 4 MG/2 ML Vial IVP PRN (12:14)
--- NOTE | 2017-06-17 12:18 | PRG ---
Patient Name: ANALISA EASON Date of service: 06/17/2017 Subjective: Patient was seen and examined at bedside and overnight events noted. Patient denies any shortness of breath or chest pain or palpitation. No history of nausea or vomiting or diarrhea or fever or chills or cramps. Objective: General: This is a well-built male in no apparent distress Vital signs: Temperature 97, pulse 69, respiratory 19, blood pressure 119/67. HEENT: Atraumatic, normocephalic. Oral mucosa is moist. Neck: Supple. Cardiovascular: S1 S2 heard. Rate and rhythm regular. Respiratory: Clear to auscultation. Gastrointestinal: Abdomen is soft. Musculoskeletal: No tenderness. No edema. Dermatologic: No skin rash. Neurologic: Alert and awake and oriented X3. No focal neurologic deficits. Moving all the extremi ties. Psychiatric: Mood and affect normal. LABORATORY DATA: Potassium is 4.4, BUN 28, creatinine 8.9 and 8.4. ASSESSMENT AND PLAN: 1. End-stage renal disease. Will continue hemodialysis. Good clearance with dialysis. 2. Edema, controlled. 3. Uremia, better. 4. Hypertension. 5. Anemia. We will continue on Epogen with dialysis. Plan is to continue on dialysis as tolerated. I talked with the [facility] in [place] and they have a chair for him. Okay to discharge from Nephrology standpoint if surgeon is okay.
[2017-06-17] MEDS ORDERED: Heparin 10,000 UNITS/ 10 ML VIAL ONE (13:11)
--- NOTE | 2017-06-17 14:19 | DIS ---
DATE OF ADMISSION: 06/14/2017 DATE OF DISCHARGE: 06/17/2017 PRIMARY CARE PHYSICIAN: Dr. Josh Pollock. DISCHARGE DISPOSITION: Home. PRIMARY DISCHARGE DIAGNOSES: 1. End-stage renal disease, converted from peritoneal dialysis to hemodialysis. 2. Status post hemodialysis catheter placement. 3. Status post arteriovenous fistula. SECONDARY DISCHARGE DIAGNOSES: Morbid obesity, secondary hyperparathyroidism of renal origin, anemia of renal disease, end-stage renal disease, hypertension , benign enlargement of prostate, cardiomyopathy, and paroxysmal atrial fibrillation. PRIMARY PROCEDURE/OPERATION: Hemodialysis tunneled catheter by Dr. Aden. AV fistula by Dr. Aden. RADIOLOGICAL INVESTIGATION: Marking ultrasound, chest x-ray was normal. SIGNIFICANT LABORATORY DATA: WBC 6.0, hemoglobin 9.1, MCV 99.1, platelet 217. INR 1.1. Sodium 140, potassium 4.4, BUN 28, creatinine 8.49, calcium 8.3, phosphorus 9.4. LFTs normal. Troponin 0.058 and lipase 91. DISCHARGE MEDICATIONS: Eliquis 2.5 mg p.o. daily, calcitriol 0.5 mcg p.o. daily , vitamin D3 2000 units p.o. daily, Sensipar 60 mg p.o. daily, Avodart 0.5 mg p.o. daily, Dialyvite one tablet p.o. daily, Fosrenol 1000 mg p.o. t.i.d., metoprolol 25 mg p.o. b.i.d., Remeron 15 mg p.o. daily, Renvela 800 mg p.o. b.i.d., and Rapaflo 4 mg p.o. daily. CONTRAINDICATIONS: None. CODE STATUS: FULL CODE. INPATIENT CONSULTANTS: Dr. Mckinley was following while in hospital. Dr. Aden was consulted for dialysis access. TEST RESULTS PENDING ON DISCHARGE: None. ALLERGIES: No known drug allergy. DISCHARGE PLAN: Post hospital, patient will follow up with primary care physician, Dr. Aden and Dr. Mckinley. Patient has outpatient hemodialysis scheduled on Tuesday, , and Tuesday. HOSPITAL COURSE: A 71-year-old male with the above-mentioned medical problem who was admitted by Dr. Stokes on 06/14/2017. Please see her H\T\P for further details. This patient was having poor appetite, anorexia, metallic taste in mouth, nausea, and pruritus. This patient was having uremia symptoms. He has ESRD and he was on peritoneal dialysis. Peritoneal dialysis was not clearing all chemicals that were contributing to his presentation. During this admission , Dr. Mckinley consulted and we discussed with the patient about hemodialysis option. Patient agreed with hemodialysis option and that is why we consulted Dr. Aden for dialysis catheter placement, which was done and subsequently patient also had an AV fistula. While in hospital, he was getting hemodialysis. He was tolerating hemodialysis very well. With help of briefcase sewer, we arranged outpatient hemodialysis. Patient does have peritoneal dialysis catheter in place and that can be removed later on whenever patient makes decision. At this point, patient is medically stable for discharge. Patient is seen and examined at bedside today. All review of systems reviewed with him and negative. Please see my progress note from today for further details. Nephrology and Surgeon are okay with discharging him home later on today. I spoke with the briefcase sewer and we arranged outpatient hemodialysis as well. Patient will have further outpatient dialysis from tomorrow and he is scheduled on Tuesday, , and Tuesday. [facility]
[2017-06-17] MEDS ORDERED: Sodium Chloride 0.9% 500 ML IVPB SCH (15:45)
[2017-06-17] MEDS: Mirtazapine 15 MG TAB PO SCH (20:27)
[2017-06-17] MEDS: Tamsulosin HCl 0.4 MG CAP PO SCH (20:30)
--- NOTE | 2017-06-17 23:39 | OP ---
DATE OF OPERATION: 06/17/2017 PREOPERATIVE DIAGNOSES: End-stage renal disease, inadequate peritoneal dialysis (patient wants to l eave the peritoneal dialysis catheter for now), failed right upper arm dialysis graft, exhausted rig ht upper extremity access, failed left Rodriguez fistula years past, preoperative ultrasound vein mappi ng reveals thrombus in the antecubital cephalic vein from iatrogenic ER intravenous access (I remove d this when I initially saw him this hospitalization). POSTOPERATIVE DIAGNOSES: End-stage renal disease, inadequate peritoneal dialysis (patient wants to leave the peritoneal dialysis catheter for now), failed right upper arm dialysis graft, exhausted ri ght upper extremity access, failed left Rodriguez fistula years past, preoperative ultrasound vein negra ing reveals thrombus in the antecubital cephalic vein from iatrogenic ER intravenous access (I remov ed this when I initially saw him this hospitalization). PROCEDURE: Left arm primary arteriovenous fistula and antecubital vein to proximal radial artery af ter thrombectomy of cephalic vein, antecubital area (thrombus from intravenous access antecubital ve in ER) outflow calibrated to a 3.5 mm coronary dilator, counter incision lateral antecubital area cl ipping the collateral vein. SURGEON: Rashi Aden M.D. ANESTHESIA: [facility]. PROCEDURE IN DETAIL: The patient taken to the operating room where under intravenous sedation and r egional anesthesia, left upper extremity was prepared with chloraprep, draped in routine fashion. P roximal forearm incision made below the antecubital fossa and carried down through the skin and subc utaneous tissue, identifying the antecubital vein, cephalic vein in the proximal forearm and dissect ed free, controlled with Silastic vessel loops. The patient was given 6000 units of heparin intrave nously. The perforating branch antecubital vein dissected free, branches divided between clips and it was spatulated over a branch point and interrogated with coronary dilators, passing coronary dila tors from a 2 mm to a 3.5 mm coronary dilator. There was some scarring in this vein. It was althou gh adequate size and there was some scarring at the junction of the cephalic vein. For this reason, cephalic vein, proximal forearm was dissected free distally, clipped over a branch point and divide d and interrogated with coronary dilators, passing coronary dilators from a 2 mm to a 3.5 mm coronar y dilator without obstruction. Margarita catheter placed to removing the thrombus from the distal cep halic vein just above the antecubital fossa due to thrombus present due to IV access in the ER. Pro ximal radial artery dissected free and was of excellent caliber and size without arteriosclerotic di sease. It was clamped proximally and distally with vascular clamps. Longitudinal arteriotomy made sharply and elongated with Willett scissors and end antecubital vein to side proximal radial artery an astomosis completed with continuous suture of 6-0 Prolene. Vascular clamps released. The patient w as given 25 mg of protamine intravenously by Anesthesia. Good hemostasis noted. Good Doppler signa l noted in the cephalic vein outflow upper arm. There was no communication to the basilic vein evid ent. The patient tolerated the procedure well without complications. Good hemostasis obtained and subcutaneous tissues approximated with 3-0 Monocryl, skin with subdermal 4-0 Monocryl and DermaGlue applied.
[2017-06-18 07:35] VITALS: BP 109/63; TEMP 98.1
[2017-06-18] MEDS: Cinacalcet HCl 30 MG TAB PO SCH (08:26)
[2017-06-18] MEDS: Famotidine 20 MG TAB PO SCH (08:27)
[2017-06-18] MEDS: Finasteride 5 MG TAB PO SCH (08:27)
[2017-06-18] MEDS: Folic Acid/Vit B Comp W-C PO SCH (08:27)
[2017-06-18] MEDS: Heparin 5,000 UNITS/ML VIAL SC SCH (08:28)
[2017-06-18] MEDS: Sevelamer Carbonate 800 MG TAB PO SCH (08:34)
--- NOTE | 2017-06-18 11:29 | PDOC.PN ---
- Subjective Encounter Start Date: 06/18/17 Encounter Start Time: 07:00 Patient seen and examined. No new complaints. No overnight events - Objective Resuscitation Status: Resuscitation Status FULL:Full Resuscitation MAR Reviewed: Yes Vital Signs & Weight: Vital Signs (12 hours) Temp Pulse Resp BP Pulse Ox 06/18/17 08:27 98.1 F 99 24 H 97 06/18/17 08:00 98.1 F 99 24 H 109/63 97 06/18/17 07:32 98.1 F 99 24 H 109/63 97 06/18/17 04:00 98.2 F 104 H 16 103/66 93 L Weight Admit Weight 281 lb Weight 283 lb I&O: 06/17/17 06/18/17 06/19/17 06:59 06:59 06:59 Intake Total 240 240 Balance 240 240 Result Diagrams: 06/15/17 04:14 06/17/17 04:43 Phys Exam - Physical Examination Constitutional: NAD HEENT: PERRLA, moist MMs, sclera anicteric Neck: no JVD, supple Respiratory: no wheezing, no rales, no rhonchi Cardiovascular: RRR, no significant murmur, no rub Gastrointestinal: soft, non-tender, no distention, positive bowel sounds Musculoskeletal: no edema, pulses present Neurological: non-focal, normal sensation, moves all 4 limbs Psychiatric: normal affect, A&O x 3 Skin: no rash, normal turgor Dx/Plan (1) Anemia of renal disease Code(s): D63.1 - ANEMIA IN CHRONIC KIDNEY DISEASE Status: Chronic (2) Atrial fibrillation Code(s): I48.91 - UNSPECIFIED ATRIAL FIBRILLATION Status: Chronic Qualifiers: Atrial fibrillation type: paroxysmal Qualified Code(s): I48.0 - Paroxysmal atrial fibrillation Comment: rate controlled, [facility] (3) BPH (benign prostatic hyperplasia) Code(s): N40.0 - BENIGN PROSTATIC HYPERPLASIA WITHOUT LOWER URINRY TRACT SYMP Status: Chronic Qualifiers: Lower urinary tract symptom presence: symptoms present Lower urinary tract symptom detail: incomplete bladder emptying Qualified Code(s): N40.1 - Benign prostatic hyperplasia with lower urinary tract symptoms; R39.14 - Feeling of incomplete bladder emptying (4) Cardiomyopathy Code(s): I42.9 - CARDIOMYOPATHY, UNSPECIFIED Status: Chronic Qualifiers: Cardiomyopathy type: non-obstructive hypertrophic Qualified Code(s): I42.2 - Other hypertrophic cardiomyopathy (5) ESRD (end stage renal disease) on dialysis Code(s): N18.6 - END STAGE RENAL DISEASE; Z99.2 - DEPENDENCE ON RENAL DIALYSIS Status: Chronic Comment: was on PD, now trnasitioning to HD. Case management arranging outpatient HD, Dr Mckinley following, will followup on their recommendaitons (6) Hypertension Code(s): I10 - ESSENTIAL (PRIMARY) HYPERTENSION Status: Chronic Qualifiers: Hypertension type: essential hypertension Qualified Code(s): I10 - Essential (primary) hypertension (7) Obesity (BMI 30-39.9) Code(s): E66.9 - OBESITY, UNSPECIFIED Status: Chronic (8) Secondary hyperparathyroidism of renal origin Code(s): N25.81 - SECONDARY HYPERPARATHYROIDISM OF RENAL ORIGIN Status: Chronic - Plan cont current plan of care, plan discussed w/ family * BP is stable and improved * discharge home * medication reviewed as below * symptomatic treatment. Review of Systems - Review of Systems ENT: negative: Ear Pain, Ear Discharge, Nose Pain, Nose Discharge, Nose Congestion, Mouth Pain, Mouth Swelling, Throat Pain, Throat Swelling, Other Respiratory: negative: Cough, Dry, Shortness of Breath, Hemoptysis, SOB with Excertion, Pleuritic Pain, Sputum, Wheezing Cardiovascular: negative: Chest Pain, Palpitations, Orthopnea, Paroxysmal Noc. Dyspnea, Edema, Light Headedness, Other Gastrointestinal: negative: Nausea, Vomiting, Abdominal Pain, Diarrhea, Constipation, Melena, Hematochezia, Other Genitourinary: negative: Dysuria, Frequency, Incontinence, Hematuria, Retention , Other Musculoskeletal: negative: Neck Pain, Shoulder Pain, Arm Pain, Back Pain, Hand Pain, Leg Pain, Foot Pain, Other - Medications/Allergies Allergies/Adverse Reactions: Allergies Allergy/AdvReac Type Severity Reaction Status Date / Time No Known Allergies Allergy Verified 06/14/17 22:51
--- NOTE | 2017-06-18 11:57 | ADD-DIS ---
ADDENDUM: 06/18/2017 Please see my discharge summary dictated yesterday for further details. This patient was planned fo r discharge yesterday, but after AV fistula, this patient's blood pressure dropped to 70-80s systoli c and that is why we gave him bolus fluid. After that, the patient was observed overnight and his b lood pressure remained stable overnight as well as next day in the morning. This patient will be discharged this morning and he will get his dialysis at his dialysis center. T he patient is seen and examined at bedside today. Please see my progress note from today for furthe r details.
--- NOTE | 2017-06-18 17:30 | PRG ---
DATE OF SERVICE: 06/18/2017 SUBJECTIVE: Patient was seen and examined at bedside and overnight events noted. Patient denies an y shortness of breath or chest pain or palpitation. No history of nausea or vomiting or diarrhea or fever or chills or cramps. OBJECTIVE: GENERAL: This is an obese male, in no acute distress. VITAL SIGNS: Temperature 98.1, pulse 99, respiratory rate 24, blood pressure 109/63. HEENT: Atraumatic, normocephalic, oral mucosa is moist. NECK: Supple. CARDIOVASCULAR: S1, S2 heard, rate and rhythm regular. RESPIRATORY: Clear to auscultation. GASTROINTESTINAL: Abdomen is soft. MUSCULOSKELETAL: No tenderness, no edema. DERMATOLOGIC: No skin rash. NEUROLOGIC: Alert and awake and oriented x3, no focal neurologic deficits. Moving all the extremit ies. PSYCHIATRIC: Mood and affect normal. LABORATORY DATA: Potassium is 4.4, BUN is 28, and creatinine is 8.4. ASSESSMENT AND PLAN: 1. End-stage renal disease, on hemodialysis. Plan is to continue on dialysis as tolerated. The pa tient is to discharge home today and follow with dialysis clinic. 2. Hypertension. 3. Edema. 4. Anemia of chronic disease. 5. Chronic kidney disease. 6. Morbid obesity. The patient was advised to follow up with the dialysis clinic today for dialysis and continue TTS as tolerated. The patient wants to continue PD and does not want to remove PD catheter at this point. We will follow.
== END 2017-06-18 10:34 | disposition home or self-care (01) | DRG 252 ==
LOC: ERS 16:58 → 2NO 21:21 → T4-B 06-16 09:56
PROVIDERS: ADMIT Internal Medicine; ATTEND Internal Medicine
PROC: 02HV33Z Insertion of Infusion Device into Superior Vena Cava, Percutaneous Approach (ICD-10-PCS; 2017-06-15)
PROC: 5A1D60Z (ICD-10-PCS; 2017-06-15)
PROC: 05CF0ZZ Extirpation of Matter from Left Cephalic Vein, Open Approach (ICD-10-PCS; principal; 2017-06-17)
DX: T82.868A Thrombosis due to vascular prosthetic devices, implants and grafts, initial encounter (principal); N18.6 End stage renal disease; I12.0 Hypertensive chronic kidney disease with stage 5 chronic kidney disease or end stage renal disease; N25.81 Secondary hyperparathyroidism of renal origin; I48.2 Chronic atrial fibrillation; I42.2 Other hypertrophic cardiomyopathy; E83.39 Other disorders of phosphorus metabolism; D63.1 Anemia in chronic kidney disease; N40.1 Benign prostatic hyperplasia with lower urinary tract symptoms; R39.14 Feeling of incomplete bladder emptying; E66.01 Morbid (severe) obesity due to excess calories; I95.81 Postprocedural hypotension; L29.9 Pruritus, unspecified; R63.0 Anorexia; Z68.38 Body mass index [BMI] 38.0-38.9, adult; Z99.2 Dependence on renal dialysis; Z79.01 Long term (current) use of anticoagulants; Y84.1 Kidney dialysis as the cause of abnormal reaction of the patient, or of later complication, without mention of misadventure at the time of the procedure
CPT/HCPCS: 36415; 71010; 80048; 80053; 80069; 82553; 83690; 83735; 84484; 85025; 85610; 85730; 90935; 93005; 93970; 94760; A4216; C1752; C1769; G0257; G0365; J0670; J1644; J2001; J2250; J2405; J2704; J2720; J3010; J7050; Q4081

== ENCOUNTER 2017-08-08 20:18 | Inpatient (IN) | payer MEDICARE, BC ==
[2017-08-08 21:58] LABS: Mean Platelet Volume 7.2 fL (7.4-10.4); White Blood Cell (WBC) Count 17.4 thou/uL (4.8-10.8)
[2017-08-08 22:08] LABS: PTT 33.4 SEC (22.9-36.1)
--- NOTE | 2017-08-08 22:10 | RAD ---
CHEST ONE VIEW: History: Hypotension. Comparison: 06-15-17 FINDINGS: Cardiac silhouette remains enlarged and is magnified. Pulmonary vasculature is upper limits of jennifer l. Mediastinum is midline with large caliber left internal jugular dialysis type catheter. No lobar consolidation or pneumothorax are apparent. IMPRESSION: Chronic type findings are stable. No active cardiopulmonary abnormalities are demonstrated. POS: [facility]
[2017-08-08 22:15] LABS: ALT (SGPT) Less than 7 U/L (8-55); AST (SGOT) 13 U/L (5-34); Alkaline Phosphatase 66 U/L (40-150); Anion Gap 29 mmol/L (10-20); BUN (Urea Nitrogen) 45 mg/dL (8.4-25.7); Bilirubin, Total 0.6 mg/dL (0.2-1.2); CK (CPK) 97 U/L (30-200); Calc. Creatinine Clearance 0 mL/min (70-130); Calcium 9.2 mg/dL (7.8-10.44); Carbon Dioxide 20 mmol/L (23-31); Chloride 94 mmol/L (98-107); Estimated GFR-MDRD 5; Lipase 54 U/L (8-78); Protein, Total 8.8 g/dL (5.8-8.1)
[2017-08-08 22:17] LABS: Anisocytosis SLIGHT = 6-15 cells (100X) (0-5/hpf); Band 3 % (5-11); Neutrophil 88 % (42-75); Ovalocytes SLIGHT = 2-5 cells (100X) (0-1/hpf); Tear Drops SLIGHT = 2-5 cells (100X) (0-1/hpf)
[2017-08-08 22:19] LABS: Troponin I 0.047 ng/mL (< 0.028)
[2017-08-08 22:34] LABS: Lactic Acid - Sepsis 4.5 mmol/L (0.5-2.2)
[2017-08-08] MEDS ORDERED: Piperacillin/Tazobactam 3.375 GM in Sodium Chloride 0.9% 100 ML IVPB SCH (23:30)
[2017-08-09] MEDS ORDERED: Ondansetron ODT 4 MG TAB SL PRN (00:58)
[2017-08-09] MEDS ORDERED: Acetaminophen 325 MG TAB PO PRN (00:58)
[2017-08-09] MEDS ORDERED: Ondansetron HCl/PF 4 MG/2 ML Vial IVP PRN (00:58)
[2017-08-09 01:24] VITALS: BMI 35.1
[2017-08-09 02:10] LABS: Troponin I 0.049 ng/mL (< 0.028)
[2017-08-09] MEDS ORDERED: Sodium Chloride 0.9% 500 ML IV SCH (04:00)
[2017-08-09 04:28] LABS: #Basophils 0.1 thou/uL (0.0-0.2); #Eosinphils 0.1 thou/uL (0.0-0.7); #Lymphocytes 1.7 thou/uL (1.20-3.40); #Monocytes 1.1 thou/uL (0.11-0.59); #Neutrophils 10.6 thou/uL (1.40-6.50); %Basophils 0.6 % (0.0-1.0); %Lymphocytes 12.5 % (21.0-51.0); %Monocytes 7.8 % (0.0-10.0); Hematocrit 33.4 % (42.0-52.0); Mean Platelet Volume 7.4 fL (7.4-10.4); Red Blood Cell (RBC) Count 3.33 mill/uL (4.70-6.10); White Blood Cell (WBC) Count 13.6 thou/uL (4.8-10.8)
[2017-08-09 04:48] LABS: Anion Gap 23 mmol/L (10-20); BUN (Urea Nitrogen) 50 mg/dL (8.4-25.7); Calc. Creatinine Clearance 9 mL/min (70-130); Calcium 8.7 mg/dL (7.8-10.44); Carbon Dioxide 24 mmol/L (23-31); Chloride 95 mmol/L (98-107); Estimated GFR-MDRD 5; Magnesium 1.8 mg/dL (1.6-2.6); Phosphorus 5.5 mg/dL (2.3-4.7)
[2017-08-09 04:55] LABS: Troponin I 0.053 ng/mL (< 0.028)
[2017-08-09 05:10] LABS: Band 9 % (5-11)
[2017-08-09 06:10] LABS: Neutrophil 70 % (42-75)
--- NOTE | 2017-08-09 06:33 | HP-2 ---
CODE STATUS: FULL. PRIMARY CARE PHYSICIAN: Ron regalado. ATTENDING: Dr. Navin Cuellar RESIDENT: Alonzo Matthew M.D. HISTORIAN: Patient. SPECIALIST Nephrology, Dr. Mckinley. CHIEF COMPLAINT: Weakness. HISTORY OF PRESENT ILLNESS: A 71-year-old male with past medical history of end-stage renal disease on daily peritoneal dialysis. The patient's last peritoneal dialysis was finished at home prior to admission. The patient has been weak and nauseous for the last 3 days and it has progressed, espec ially within the last 24 hours. Blood pressures at home have been in the low 80s systolic. The pat brittny had a fistula placement a week ago and has not been feeling well since then. He denies any fev er, shortness of breath, chest pain, diarrhea, syncope or cramps. He had similar symptoms 6 weeks a go and the symptoms improved after he received hemodialysis in the hospital. In the ER, the patient received Levaquin, vancomycin and Zosyn and blood cultures were taken. The patient states that for the last several months his blood pressures have ranged anywhere from 80 systolic to 100 systolic and he has been asymptomatic with these blood pressures. PAST MEDICAL HISTORY: 1. End-stage renal disease on daily peritoneal dialysis. 2. Atrial fibrillation. 3. Hypertension. 4. Benign prostatic hypertrophy. PAST SURGICAL HISTORY: 1. PD catheter. 2. Left arm fistula. 3. Tonsillectomy. ALLERGIES: No known drug allergies. HOME MEDICATIONS: 1. Eliquis 2.5 mg p.o. daily. 2. Mirtazapine 50 mg p.o. at bedtime. 3. Avodart 0.5 mg p.o. at bedtime. 4. Fosrenol 1000 mg p.o. t.i.d. a.c. 5. Dialyvite 1-100 mg 800 mg p.o. at bedtime. 6. Renvela 800 mg p.o. b.i.d. 7. Metoprolol succinate 25 mg p.o. daily, which the patient states he has not taken in the last tue due to low blood pressures at home. 8. Vitamin D 37 mg - 400 units p.o. 9. Sensipar 60 mg p.o. daily. 10. Calcitriol 0.5 mcg p.o. SOCIAL HISTORY: The patient denies tobacco, alcohol, or drug use. REVIEW OF SYSTEMS: Twelve point review of systems including general, eyes, ENT, respiratory, CV, GI , , skin, musculoskeletal, neuro and psych reviewed and were negative with the exception of minima l abdominal pain, weakness, and fatigue. PHYSICAL EXAMINATION: VITAL SIGNS: Blood pressure 84/58, pulse 112, respiratory rate 17, T-max 99, pulse ox 96% on room a ir, current weight is 129 kilograms. GENERAL: The patient is alert and oriented x3 in no acute distress, morbidly obese, lying flat in t he bed. EYES: Pupils equal, round, reactive to light and accommodation. Extraocular muscles intact. Conju nctivae within normal limits. ENT: Tympanic membranes pearly tate without bulging or erythema. Nasal mucosa and oropharynx withi n normal limits. NECK: Supple, without lymphadenopathy or thyromegaly. Right EJ central line in place. CARDIOVASCULAR: Regular rate and rhythm. No murmurs or gallops. Radial pulses and pedal pulses ar e present and equal bilaterally. RESPIRATORY: Normal effort, no retractions. LUNGS: Clear to auscultation bilaterally. SKIN: Warm and dry without cyanosis or lesions. ABDOMEN: Soft. Mild tenderness to palpation diffusely. PD catheter in place. No signs of erythem a or infection. EXTREMITIES: No clubbing, cyanosis or edema. MUSCULOSKELETAL: Structure and tone within normal limits. Full range of motion. NEUROLOGIC: No focal deficits. Sensation within normal limits. PSYCHIATRIC: Appropriate. LABORATORY DATA: White blood cell count 17.4, neutrophils 88%, bands 3%. Hemoglobin 10.8, hematocr it 33.0, MCV 100, platelets 316. Sodium 139, potassium 3.6, chloride 94, bicarbonate 20, BUN 45, cr eatinine 12.7, glucose 75, calcium 9.2, total protein 8.8, albumin 3.6, total bilirubin 0.6, AST 13, ALT less than 7. Alkaline phosphatase was 66. Lactic acid 4.5. INR 1.3, PT 16, PTT 33.4. CK 97, CK-MB 0.9, troponin 0.047, lipase 54. Chest x-ray showed no acute cardiopulmonary processes. ASSESSMENT AND PLAN: A 71-year-old male with: 1. Weakness, likely secondary to inadequate peritoneal dialysis clearance. A recent left AV fistul a placed 1 week ago, but has not matured yet. Likely will need temporary hemodialysis. Consult nep hrology, Dr. Mckinley is his rehabilitation inspector, in the morning. Check phosphorus and monitor electrolytes . 2. Lactic acidosis, possibly secondary to poor renal clearance versus systemic inflammatory respons e syndrome/sepsis syndrome with source of infection currently unknown. The patient does not have si gnificant abdominal pain. Antibiotics were started prior to peritoneal culture. Check procalcitoni n. 3. Chronic anemia, macrocytic. Check B12 and folate and peripheral smear. 4. Indeterminate troponin, likely secondary to chronic kidney disease. No acute EKG findings. 5. History of systolic congestive heart failure, ejection fraction in 2015 was 30-35%. Consider [facility] echo. 6. Atrial fibrillation. Continue metoprolol and Xarelto. DISPOSITION/LENGTH OF HOSPITAL STAY: Two days. Symptomatic medications will be provided. History and physical exam as well as management discussed with Dr. Cuelalr.
[2017-08-09] MEDS: Piperacillin/Tazobactam 2.25 GM in Sodium Chloride 0.9% 100 ML IVPB SCH ×3 (07:14→21:56)
[2017-08-09] MEDS ORDERED: Gabapentin 300 MG CAP PO SCH (08:45)
[2017-08-09] MEDS ORDERED: cefTRIAXone\\ROCEPHIN 1 GM, Syringe 0.4 ML in Sterile Water 9.6 ML SLOW IVP SCH (09:00)
[2017-08-09] MEDS ORDERED: Albumin 25% 25 GM/100 ML BOT IVPB PRN (09:01)
--- NOTE | 2017-08-09 09:45 | HP ---
CHIEF COMPLAINT: Neck fullness. HISTORY OF PRESENT ILLNESS: This is a 71-year-old gentleman with a history of end-stage renal disease on peritoneal dialysis who presents with 1-2 day history of neck swelling. He has had pronounced fatigue, fever, chills, chest pain, shortness of breath, abdominal swelling or pain, diarrhea or really other complaint. He said he actually feels kind of silly coming to the ER. In the ER was found to be borderline hypotensive with blood pressures in the upper 80s. He was started on antibiotics. Cultures were drawn. He was admitted to our service. Currently, he says he is asymptomatic. He is sleeping comfortably before I entered the room. He says he does not have any complaints right now. REVIEW OF SYSTEMS: All other systems are reviewed and otherwise negative. PAST MEDICAL HISTORY: 1. Positive for ESRD. 2. BPH. 3. Atrial fibrillation. 4. Hypertension. He also has an echo with EF of 30-35% in 2015. 5. Chronic heart failure. PAST SURGICAL HISTORY: Right knee surgery, tonsillectomy, dialysis catheter placement and AV fistula creation. ALLERGIES: No known drug allergies. SOCIAL HISTORY: Denies tobacco, ethanol or drug use. MEDICATIONS: Mirtazapine, dutasteride, calcitriol, sevelamer, Apixaban, Lanthanum, Cinacalcet and vitamin D3. FAMILY HISTORY: Noncontributory. PHYSICAL EXAMINATION: VITAL SIGNS: Temperature 98.3, pulse 119, respirations 18, O2 sat 97. Most recent BP 93/48 from a right lower extremity cuff. GENERAL: No acute distress, resting comfortably in bed and very conversant and oriented. No icterus or injection. HEENT: Pupils equal, round, and reactive to light. Moist mucous membranes. NECK: He has an obese neck, no audible bruit. CARDIOVASCULAR: Regular rate and rhythm without murmur, gallop or rub. His left AV fistula has an audible and nonpalpable bruit. LUNGS: Clear to auscultation without wheezes, rales or rhonchi. Increased work of breathing. ABDOMEN: Bowel sounds positive. Nontender to palpation. No palpable organomegaly. He is obese. Peritoneal catheter site looks good. No surrounding purulence. GENITOURINARY: Deferred. MUSCULOSKELETAL: Without obvious deformity or contracture fracture. SKIN: He has quite a bit of dry skin and perhaps some tinea pedis of the lower extremities. No obvious pressure ulcer. He has a left subclavian dialysis catheter in the site. I was told it had to be cleaned, but it was well- appearing without surrounding erythema or expressible purulence on my exam. NEUROLOGIC: Cranial nerves II-XII intact and symmetrical. Motor is 5/5 in all 4 extremities. Sensation intact to light touch in all 4 extremities. PSYCHIATRIC: Alert and oriented x3, very conversant. Mood and affect appropriate for current medical condition, but he says he does feel silly for coming when he did not really feel that bad. LABORATORY DATA: White count is 13.6, it is down from 17.4, hemoglobin 11.1, MCV of 100, platelets 249. PT 16, INR 1.3, PTT 33.4. Sodium 138, potassium 3.7 , chloride 95, BUN 50, creatinine 12.9. Lactic acid is 2.8, down from 4.8, phosphorus 5.5, mag 1.8. Troponin 0.053. Vitamin B12 713. Cortisol 9.9. Chest x-ray; chronic findings, no active pulmonary abnormalities. On his rhythm strip is in atrial fibrillation with RVR. ASSESSMENT AND PLAN: 1. A 71-year-old male with leukocytosis and hypotension. We have to rule out sepsis here and will go ahead and send a culture from the peritoneal dialysis catheter as well as subclavian catheter, start him on vancomycin and Zosyn. Consult Nephrology and at this point he is mentating well and his procalcitonin is only 1, so I am wondering if he has another cause for his hypotension such as this is atrial fibrillation with RVR and a history of heart failure.. 2. End-stage renal disease - will consult Renal this morning to get their opinion. 3. Anemia, presumably secondary to his current disease. We will discuss with Renal. No indication for transfusion currently. 4. Lactic acidosis could be multifactorial from sepsis to atrial fibrillation, cardiogenic shock. He does not have any evidence of end organ perfusion otherwise. 5. Hyperphosphatemia. Continue phos binders. 6. Elevated troponin. Currently, no ST or T-wave changes that I can see. We are going to trend this, suspect this is simply due to his tachycardia and underlying renal disease. 7. Atrial fibrillation with rapid ventricular response. He is borderline, may need to be treated. We will consider starting metoprolol/dig in order to get this down with care to monitor his blood pressure. We will discuss with Cardiology and I will order a TTE. 8. Hypertension. Hold all medications at this point. 9. Benign prostatic hypertrophy. Okay to continue home medications. 10. Body mass index 39. We will discuss diet and exercise. 11. Secondary hyperparathyroidism. We will consult Renal and await their recommendation for labs. 12. Deep venous thrombosis prophylaxis. He is on Eliquis. 13. Gastrointestinal prophylaxis diet. MTDD
[2017-08-09 13:44] LABS: BF Reference Range Comment Note:
--- NOTE | 2017-08-09 15:08 | PRG ---
DATE OF SERVICE: 08/09/2017 SUBJECTIVE: Michael Hutton is a 71-year-old male on peritoneal dialysis. He has had vascular access placed for hemodialysis. He presented with weakness, nausea , and vomiting. Apparently, he has a similar history that at the recent admission that improved with dialysis. He has been admitted to the IMU. PAST MEDICAL HISTORY: Remarkable for atrial fibrillation, hypertension, BPH, vascular access procedures and tonsillectomy. ALLERGIES: He has no drug allergies. SOCIAL HISTORY: He is a nonsmoker, nondrinker. MEDICATIONS: He is on Eliquis, mirtazapine, Avodart, Fosrenol, Dialyvite, Renvela, metoprolol, Sensipar and calcitriol. REVIEW OF SYSTEMS: Otherwise negative. PHYSICAL EXAMINATION: GENERAL: He is afebrile, heart rate 94, respiratory rate is 20, oximetry is 100 %, blood pressure is 89/54. HEENT: Pupils are equal. Sclerae is anicteric. NECK: Supple. LUNGS: Clear. HEART: Regular rhythm. S1 and S2 are normal. ABDOMEN: Soft and nontender. EXTREMITIES: Without asymmetry. LABORATORY DATA: Sodium 138, potassium 3.7, chloride 95, bicarbonate 24, BUN 50 , creatinine 12.9, lactate level was 4.8 on arrival, 2.8 now. Blood cultures are negative so far. IMPRESSION: 1. End-stage renal disease, on peritoneal dialysis. 2. History of atrial fibrillation. 3. Hypertension. 4. Metabolic acidosis of unclear etiology. It would be nice to culture his dialysate, but apparently antibiotics were started before these cultures could be obtained. He appears to be reasonably stable at this point. Critical care time 30 min. MTDD
[2017-08-09 15:30] LABS: BF Color Colorless; BF WBC/Nonhematics Ct. - Manua 160 /cumm
[2017-08-09 15:31] LABS: Number Cells Counted-Fluids 100
--- NOTE | 2017-08-09 15:36 | PDOC.OP ---
Operative Note - Operative Note Operative Note: INDICATION: venous access, hypotension PROCEDURE RN DIABETES EDUCATOR: Dr. Ryan Young, Dr. Zaid Colmenares ATTENDING PHYSICIAN: Dr. James Marcus Ultrasound Used: Yes CONSENT: Obtained Consent was obtained from patient prior to the procedure. Indications, risks, and benefits were explained at length. PROCEDURE SUMMARY: The [facility] Central Line Insertion Practices form was completed by an independent observer starting with the first handwash prior to starting sterile technique. A time out was performed. My hands were washed immediately prior to the procedure. I wore a surgical cap, mask with protective eyewear, sterile gown and sterile gloves throughout the procedure. The RIGHT inguinal region was prepped using chlorhexidine scrub and draped in sterile fashion using a three quarter sheet drape. The femoral pulse was identified. Anesthesia was achieved using 1% lidocaine. Palpating the femoral pulse throughout the procedure, the introducer needle was inserted Medial to the femoral artery, inferior to the inguinal crease and into the Femoral vein. Venous blood was withdrawn. The syringe was removed and a guidewire was advanced into the introducer needle. Guidewire placement into the femoral vein was confirmed via ultrasound. A small incision was made at the skin surface with a scalpel and the introducer needle was exchanged for a dilator over the guidewire. After appropriate dilation was obtained, the dilator was exchanged over the wire for a triple lumen central venous catheter. The wire was removed and the catheter was sutured in place at 18 cm. A sterile sorbaview shield was placed over the catheter at the insertion site. The patient tolerated the procedure without any hemodynamic compromise. At time of procedure completion, all ports aspirated and flushed properly. Estimated blood loss is minimal. <Ryan Young - Last Filed: 08/09/17 15:33> Attending Addendum - Attending Addendum I personally evaluated the patient and discussed the management with Dr. Colmenares on 08/09/17. I was participated in and supervised the entire procedure as documented above. <James Marcus - Last Filed: 08/22/17 12:16>
[2017-08-09] MEDS ORDERED: Digoxin 0.5 MG/2 ML AMP SLOW IVP SCH (16:15)
[2017-08-09] MEDS: traMADol HCl 50 MG TAB PO PRN ×2 (16:34→22:39)
[2017-08-09] MEDS: Sevelamer Carbonate 800 MG TAB PO SCH (16:35)
[2017-08-09] MEDS ORDERED: Gabapentin 100 MG CAP PO SCH (19:45)
[2017-08-09] MEDS: Calcitriol 0.25 MCG CAP PO SCH (20:29)
[2017-08-09] MEDS: Cinacalcet HCl 30 MG TAB PO SCH (20:29)
[2017-08-09] MEDS: Dutasteride 0.5 MG CAP PO SCH (20:30)
[2017-08-09] MEDS: Mirtazapine 15 MG Soltab PO SCH (20:35)
[2017-08-09] MEDS: Lanthanum Carbonate 500 mg Tablet PO SCH (20:35)
[2017-08-09] MEDS: Silodosin 4 MG CAP PO SCH (20:35)
[2017-08-09] MEDS ORDERED: Apixaban 5 MG TAB PO SCH (21:00)
--- NOTE | 2017-08-09 22:24 | CON ---
CARDIOLOGY CONSULTATION NOTE DATE OF CONSULTATION: 08/09/2017 REFERRING PHYSICIAN: Dr. Kramer. REASON FOR CONSULTATION: Paroxysmal atrial fibrillation with rapid ventricular response. HISTORY OF PRESENT ILLNESS: Mr. Hutton is a 71-year-old gentleman with a history of atrial fibrillat ion who presents for transition from peritoneal dialysis to hemodialysis. He underwent initiation o f hemodialysis earlier today with resultant hypotension and developed rapid atrial fibrillation. Ca rdiology consulted for recommendations. He has been relatively hypotensive since his dialysis run and is preparing for dialysis catheter darwin [employer]. He denies any overt cardiovascular symptoms and has had this for some time. He is anticoagulated on Eliquis and is not able to be rate controlled with rate limiting agents currently due to his hypote nsion. PAST MEDICAL HISTORY: 1. End-stage renal disease, previous peritoneal dialysis. 2. Atrial fibrillation, paroxysmal. 3. Hypertension. 4. BPH. PAST SURGICAL HISTORY: 1. Dialysis access and graft placement in both arms, Tenckhoff dialysis catheter placement. 2. Tonsillectomy. 3. Right knee surgery. ALLERGIES: No known drug allergies. SOCIAL HISTORY: Denies tobacco use, ethanol abuse, illicit or recreational drug use. FAMILY HISTORY: Negative with respect to premature atherosclerosis. CURRENT MEDICATIONS: At home include; 1. Eliquis 2.5 mg at bedtime. 2. Calcitriol 0.5 mcg at bedtime. 3. Cholecalciferol 2000 international units daily. 4. Sensipar 60 mg at bedtime. 5. Avodart 0.5 mg at bedtime. 6. Fosrenol 1000 mg p.o. at bedtime. 7. Remeron 15 mg at bedtime. 8. Renvela 800 mg b.i.d. 9. Rapaflo 4 mg at bedtime. REVIEW OF SYSTEMS: As per history of present illness. Remainder of 12-system review is negative. PHYSICAL EXAMINATION: VITAL SIGNS: Blood pressure is 89/54, pulse 124 and irregularly irregular, respiratory rate 20 and nonlabored, temperature 97.6 and oxygen saturation 100% on room air. GENERAL: This is a well-developed, overweight 71-year-old gentleman in no acute distress. He is al ert and oriented x4. Answers questions appropriately. HEENT: Head was atraumatic and normocephalic. Pupils are equally round and reactive. Sclerae and conjunctivae are clear. There are no oral lesions. NECK: Supple. No JVD, thyromegaly or carotid bruits. CHEST: Symmetrical inspiration and expiration. HEART: Irregularly irregular with no murmur, S3 or S4. PMI is nondisplaced, not enlarged. LUNGS: Clear to auscultation in all barnett. No adventitious sounds appreciated. ABDOMEN: Soft, nontender and nondistended, without mass or organomegaly. Bowel sounds are present in all 4 quadrants. No flank bruits auscultated. EXTREMITIES: 2+ pulses noted bilaterally in the upper and lower extremity. Strength is 5/5 bilater ally. There is no clubbing or cyanosis. There is diffuse edema to the mid shins bilaterally. NEUROLOGIC: Grossly intact with no focal motor deficits appreciated. DATABASE: EKG reveals rapid atrial fibrillation rates at 120s. LABORATORY DATA: CBC reveals a white count of 13, hemoglobin and hematocrit of 11 and 30, platelet c ount 249,000. Differential white blood cells normal. Red cell indices normocytic. Coagulation studies normal. Chemistries reveal normal electrolytes, BUN and creatinine 50 and 12.9, GFR is estimated at 5. Lactic acid 2.8, currently. LFTs are normal. Troponin was indeterminate w ith the last draw of 0.053. ASSESSMENT: 1. Paroxysmal atrial fibrillation with rapid ventricular response. 2. Relative hypotension post hemodialysis initiation. 3. End-stage renal disease. 4. Systemic hypertension, well controlled, volume dependent. RECOMMENDATIONS: 1. From a cardiac standpoint, he is stable. We will initiate attempted rate control with digitaliz ation intravenously and with initiation of oral therapy beginning tomorrow. 2. We will add beta-yolette, other rate limiting agents as tolerated based on his blood pressure as he equilibrates with recurrent hemodialysis therapy. 3. We will get him back to Dr. Rahman to continue to titrate medications as tolerated in the outpat ient setting once he is discharged. I appreciate the opportunity to participate.
[2017-08-09] MEDS: Digoxin 0.5 MG/2 ML AMP SLOW IVP SCH (23:52)
--- NOTE | 2017-08-10 00:15 | CON ---
DATE OF CONSULTATION: 08/09/2017 HISTORY OF PRESENT ILLNESS: Michael Hutton is a 71-year-old male dialysis patient. He has exhaust ed his right upper extremity for dialysis access. We placed a left upper arm dialysis graft on 04/2017 as well a hemodialysis catheter left IJ, right IJ was occluded. He has tried peritoneal dial ysis, but this did not work well for him. He has been admitted for malaise. He has started hemodia lysis today. I have been asked to see him regarding removal of his peritoneal dialysis catheter. T his admission, he has been afebrile. White count is 17 on admission, 13 today; hemoglobin 11.1. Bl ood cultures to date are negative. TOBACCO: None. ALCOHOL: None. MEDICATIONS: Sensipar, vitamin D, Calcitriol, metoprolol, Folic acid, Avodart, Rapaflo, Remeron, El iquis, Renvela. PAST SURGICAL HISTORY: Right arm fistula stab, which was converted to prosthetic graft, subsequent revisions, now thrombosed, exhausting the right upper extremity dialysis access, left wrist Rodriguez f istula thrombosed, left arm dialysis graft noted above, laparoscopic peritoneal dialysis catheter pl aced in the past, cystoscopy in the past. REVIEW OF SYSTEMS: Ten point noncontributory. PHYSICAL EXAMINATION: VITAL SIGNS: 6 feet tall, 259 pounds, 35 BMI, 97.6, 94. HEENT: Unremarkable. LUNGS: Clear to auscultation. CARDIAC: Regular rate and rhythm without murmur or gallop. ABDOMEN: Soft. Peritoneal dialysis catheter in place, left upper arm dialysis graft, good bruit, w ounds well healed. ASSESSMENT AND PLAN: Undesired peritoneal dialysis catheter. He has tried on two different occasio ns, peritoneal dialysis does not work out for him, we will plan removal of his peritoneal dialysis c atheter under IV sedation, local anesthesia. Left arm dialysis graft not ready for access, we will be ready to access in about 3 more weeks. We will send a letter to his dialysis unit to indicate th at.
[2017-08-10] MEDS ORDERED: Ketorolac Tromethamine 60 MG/2 ML VIAL IVP SCH (02:45)
[2017-08-10] MEDS: Digoxin 0.5 MG/2 ML AMP SLOW IVP SCH (05:43)
[2017-08-10] MEDS: Piperacillin/Tazobactam 2.25 GM in Sodium Chloride 0.9% 100 ML IVPB SCH ×3 (05:44→22:24)
--- NOTE | 2017-08-10 06:19 | CON ---
DATE OF CONSULTATION: 08/09/2017 CONSULTING PHYSICIAN: Dr. Cuellar. REASON FOR CONSULTATION: End-stage renal disease evaluation and care. REASON FOR ADMISSION: Weakness. HISTORY OF PRESENT ILLNESS: This is a 71-year-old male with history of end-stage renal disease, atr ial fibrillation, hypertension, BPH, came to the hospital with weakness and was found to have possib le sepsis and being evaluated, he was hypotensive. The patient is a peritoneal dialysis patient, wh o has been tried on PD, but has been getting progressively weak to the extent that PD may not be wor sunny well for him, may have to switch to hemodialysis for adequate clearance. The patient is accept able to that. He denied any fever, but is having chills and very weak and fatigued lately. No naus ea, vomiting, or diarrhea reported. No chest pain, shortness of breath, or palpitation, but he was hypotensive around 80s-90s. PAST MEDICAL HISTORY: Positive for end-stage renal disease, atrial fibrillation, hypertension, BPH. PAST SURGICAL HISTORY: PD catheter placement, left arm fistula placement, and tonsillectomy. HOME MEDICATIONS: Eliquis, mirtazapine, Avodart, Fosrenol, Dialyvite, Renvela, metoprolol, vitamin D3, Sensipar, and calcitriol. ALLERGIES: No known drug allergies. SOCIAL HISTORY: No smoking, alcohol, or illicit drug abuse. FAMILY HISTORY: No history of any kidney disease. REVIEW OF SYSTEMS: The following complete review of systems was negative, unless otherwise mentione d in the HPI or below: Constitutional: Weight loss or gain, ability to conduct usual activities. Skin: Rash, itching. Eyes: Double vision, pain. ENT/Mouth: Nose bleeding, neck stiffness, pain, tenderness. Cardiovascular: Palpitations, dyspnea on exertion, orthopnea. Respiratory: Shortness of breath, wheezing, cough, hemoptysis, fever or night sweats. Gastrointestinal: Poor appetite, abdominal pain, heartburn, nausea, vomiting, constipation, or diar ghazala. Genitourinary: Urgency, frequency, dysuria, nocturia. Musculoskeletal: Pain, swelling. Neurologic/Psychiatric: Anxiety, depression. Allergy/Immunologic: Skin rash, bleeding tendency. PHYSICAL EXAMINATION: GENERAL: This is an obese male, in no apparent distress. VITAL SIGNS: Temperature 98.7, pulse 94, respiratory rate 20 blood pressure 89/54. HEENT: Atraumatic, normocephalic. Oral mucosa is moist. NECK: Supple, no masses. CARDIOVASCULAR: S1 and S2 heard. Rate and rhythm regular. RESPIRATORY: Clear. ABDOMEN: Soft. MUSCULOSKELETAL: No tenderness. No edema. DERMATOLOGIC: No skin rash. NEUROLOGIC: Alert and awake. PSYCHIATRIC: Mood and affect normal. LABORATORY DATA: Hemoglobin is 11.1. Potassium is 3.7, BUN is 50, creatinine is 12.9. ASSESSMENT AND PLAN: 1. End-stage renal disease, on peritoneal dialysis, seems likely he is not getting good clearance f rom PD and . Plan is to switch him to hemodialysis. The patient is agreeable to that and was also at the bedside. Plan is to consult Surgery for removal of PD catheter. The PD exit site also had a pleural drainage. Plan is to culture that. Nurse had already sent the specimen to the l ab. Plan is to continue on antibiotics, remove PD catheter, and continue hemodialysis through his t unneled catheter and follow with Surgery for access placement until he did have a revision surgery f or fistula. Recommend also check blood culture from the tunneled dialysis catheter, needs to exchan ge if needed if found to be infected. Follow up with Surgery, Dr. Aden notified. 2. Anemia of end-stage renal disease, stable. 3 Edema, controlled. 4. Hypertension, currently hypotensive, hold blood pressure medicines, and we will use albumin and IV fluids with dialysis. 5. Sepsis, per primary team. Continue supportive care antibiotics and continue on dialysis as tolerated. The patient had 2 hours of dialysis today. We will follow. Continue broad spectrum antibiotics. Monitor vancomycin level and dose based on level. Hold the dose if level more than 20. Renally dose all the medicine. Thank you for the consult.
[2017-08-10] MEDS ORDERED: Vancomycin HCl 1.25 GM in Sodium Chloride 0.9% 250 ML 250 ML IVPB SCH (06:45)
[2017-08-10] MEDS ORDERED: Vancomycin HCl 1 GM in Premix Bag 1 BAG IVPB SCH ×2 (06:45→09:00)
[2017-08-10] MEDS ORDERED: Vancomycin Sliding Scale 1 EACH FS ONE (06:45)
[2017-08-10] MEDS ORDERED: Vancomycin HCl 500 MG in Sodium Chloride 0.9% 100 ML IVPB SCH (06:45)
[2017-08-10] MEDS ORDERED: HOLD VANCOMYCIN FOR LEVEL >20 FS SCH (06:45)
[2017-08-10] MEDS ORDERED: Vancomycin HCl 750 MG in Sodium Chloride 0.9% 250 ML 250 ML IVPB SCH (06:45)
[2017-08-10] MEDS: Sevelamer Carbonate 800 MG TAB PO SCH ×2 (07:42→15:41)
[2017-08-10] MEDS: Digoxin 0.125 MG TAB PO SCH (07:43)
[2017-08-10 08:21] LABS: #Eosinphils 0.4 thou/uL (0.0-0.7); #Lymphocytes 1.6 thou/uL (1.20-3.40); #Monocytes 0.8 thou/uL (0.11-0.59); #Neutrophils 6.4 thou/uL (1.40-6.50); %Basophils 0.5 % (0.0-1.0); %Eosinophils 3.8 % (0.0-10.0); %Lymphocytes 17.3 % (21.0-51.0); %Monocytes 9.1 % (0.0-10.0); Hematocrit 25.8 % (42.0-52.0); Mean Platelet Volume 7.2 fL (7.4-10.4); Red Blood Cell (RBC) Count 2.54 mill/uL (4.70-6.10); White Blood Cell (WBC) Count 9.2 thou/uL (4.8-10.8)
[2017-08-10 08:47] LABS: Anion Gap 14 mmol/L (10-20); BUN (Urea Nitrogen) 41 mg/dL (8.4-25.7); Calc. Creatinine Clearance 12 mL/min (70-130); Calcium 8.3 mg/dL (7.8-10.44); Carbon Dioxide 30 mmol/L (23-31); Chloride 99 mmol/L (98-107); Estimated GFR-MDRD 6
[2017-08-10] MEDS ORDERED: Digoxin 0.25 MG TAB PO SCH (09:00)
[2017-08-10] MEDS ORDERED: Fentanyl 100 MCG/2 ML VIAL ONE (09:27)
[2017-08-10] MEDS ORDERED: Meperidine HCl/PF 25 MG/ML VIAL ONE (09:27)
[2017-08-10] MEDS ORDERED: Midazolam HCl 2 mg/2 ml Vial ONE (09:27)
[2017-08-10] MEDS ORDERED: Bupivacaine/Epinephrine 0.25% 30 ML VIAL ONE (09:37)
[2017-08-10] MEDS ORDERED: Propofol 200 MG/20 ML VIAL ONE (09:39)
--- NOTE | 2017-08-10 11:03 | OP ---
PREOPERATIVE DIAGNOSES: Inadequate peritoneal dialysis and need of removal of peritoneal dialysis ca theter, end-stage renal disease, immature dialysis graft of left upper arm, hemodialysis catheter dep endent. PROCEDURE: Removal of peritoneal dialysis catheter, double cuffed pigtail. SURGEON: Dr. Rashi Aden ANESTHESIA: TIVA. Local 0.25% Marcaine with epinephrine, 30 mL, mixed with 2% Xylocaine, 10 mL PROCEDURE IN DETAIL: Patient taken to the operating room, where under intravenous sedation, abdomen and PD catheter prepared with ChloraPrep, draped in routine fashion. Local anesthetic mixture infilt rated into skin and subcutaneous tissue about the operative site and catheter dissected free, freeing both cuffs and removing the catheter intact and discarded it. Wound packed with Surgicel and gauze dressing. The patient tolerated the procedure well.
[2017-08-10 14:25] LABS: Folate,Hemolysate >620.0 ng/mL (Not Estab.); RBC Folate Test Component Greater than 2214 ng/mL (>498)
[2017-08-10] MEDS ORDERED: Albumin 25% 25 GM/100 ML BOT IVPB PRN (15:14)
[2017-08-10] MEDS ORDERED: Ketorolac Tromethamine 30 MG/ML VIAL IVP PRN (15:17)
[2017-08-10] MEDS ORDERED: traMADol HCl 50 MG TAB PO PRN (15:18)
[2017-08-10] MEDS ORDERED: Sterile Water 10 ML VIAL IVP SCH (15:22)
[2017-08-10] MEDS ORDERED: Activase 2 MG VIAL CATH SCH (15:22)
--- NOTE | 2017-08-10 16:34 | PRG ---
DATE OF SERVICE: 08/10/2017 Mr. Hutton is afebrile, heart rate is in the 90s, respiratory rate is 20, oximetry is 100%, blood pres sure 113/41. According to the dialysis nurses, his access is not flowing as well as it should. His peritoneal dialysis catheter was removed today. He is being dialyzed when I evaluated him. He had no new problems reported. His hemoglobin was 8.4 today, was 11.1 yesterday, platelets 221. He was positive 3890 fluid balance which probably accounts for his drop in hemoglobin. Electrolytes were unremarkable. BUN is 41, creatinine is 10. Cultures are negative so far. IMPRESSION: 1. End-stage renal disease, now converted to hemodialysis. 2. History of atrial fibrillation. 3. Hypertension. 4. Metabolic acidosis which is more secondary to ineffective peritoneal dialysis, this is improved a nd continue current care.
--- NOTE | 2017-08-10 19:06 | PDOC.FM ---
- Subjective Subjective: Patient awake and alert, sitting up in bed this morning. He has no complaints and had no acute events overnight. BP stable with adequate MAP. - Objective MAR Reviewed: Yes Vital Signs & Weight: Vital Signs (12 hours) Temp Pulse Resp BP Pulse Ox 08/10/17 07:46 97.9 F 98 21 H 113/41 L 100 08/10/17 07:43 98 08/10/17 07:27 97.9 F 98 21 H 100 Weight Weight 121.591 kg I&O: 08/09/17 08/10/17 08/11/17 06:59 06:59 06:59 Intake Total 3890 1425 Output Total 0 0 Balance 3890 1425 Result Diagrams: 08/10/17 08:11 08/10/17 08:11 <Ryan Young - Last Filed: 08/10/17 19:02> - Objective Vital Signs & Weight: Weight Weight 121.591 kg I&O: 08/09/17 08/10/17 08/11/17 06:59 06:59 06:59 Intake Total 3890 1425 Output Total 0 0 Balance 3890 1425 Result Diagrams: 08/10/17 08:11 08/10/17 08:11 <Vane Luna - Last Filed: 08/10/17 22:56> Phys Exam - Physical Examination Constitutional: NAD HEENT: moist MMs Respiratory: no wheezing, no rales Cardiovascular: RRR, no significant murmur Gastrointestinal: soft, non-tender Neurological: moves all 4 limbs Psychiatric: normal affect, A&O x 3 <Ryan Young - Last Filed: 08/10/17 19:02> Dx/Plan (1) Severe sepsis Code(s): A41.9 - SEPSIS, UNSPECIFIED ORGANISM; R65.20 - SEVERE SEPSIS WITHOUT SEPTIC SHOCK Status: Acute Plan: Patient currently on Zosyn and Vancomycin while we await culture results with sensitivities. Cultures taken from each line. Continues to have borderline MAP with systolic pressures ranging from 80-110. Improving with albumin and fluids during dialysis. Will hold off on pressor since patient is asymptomatic. (2) ESRD (end stage renal disease) on dialysis Code(s): N18.6 - END STAGE RENAL DISEASE; Z99.2 - DEPENDENCE ON RENAL DIALYSIS Status: Chronic Plan: PD no longer adequate. Patient will have PD catheter removed by Dr. Aden and will again get hemodialysis. Nephro managing. Left AV fistula will require 3 more weeks to mature (3) Atrial fibrillation Code(s): I48.91 - UNSPECIFIED ATRIAL FIBRILLATION Status: Chronic QualifierTitle: Atrial fibrillation type: paroxysmal Qualified Code(s): I48.0 - Paroxysmal atrial fibrillation Plan: Patient with paroxysmal a-fib with RVR. Cardiology has been consulted and has started digoxin with initiation of a beta yolette once pressures allow. (4) Anemia of renal disease Code(s): D63.1 - ANEMIA IN CHRONIC KIDNEY DISEASE Status: Chronic Plan: Being managed by Nephrology. No blood products given this hospitalization - Plan Plan: Plan: -PD catheter removal -close monitoring of vital signs to assess for need to start pressor -monitor heart rate for possible need to titrate digoxin -hemodialysis today -continue Abx until cultures result <Ryan Young - Last Filed: 08/10/17 19:02> Attending Addendum - Attending Addendum I personally evaluated the patient and discussed the management with Dr. Young I agree with the History, Examination, Assessment and Plan documented above with any addition or exceptions noted below. 71 yo male admitted for septic shock HD#1 Septic shock: Improved. BP improved. Lactic acid improved. Cultures currently negative. Possible source -- peritonitis due to peritoneal dialysis. PD cath removed today. Continue empiric antibx. Could likely de-escalate tomorrow. Would also consider d/c Fem line. No need for pressers at this time. ESRD: Converted to HD. A fib with RVR: On dig due to hypotension. Stable/resolved. Monitor. Continue current care. Critical care, cards, and renal following. Liv <Vane Luna - Last Filed: 08/10/17 22:56>
[2017-08-10] MEDS: Calcitriol 0.25 MCG CAP PO SCH (22:22)
[2017-08-10] MEDS: Pregabalin 75 MG CAP PO SCH (22:23)
[2017-08-10] MEDS: Cinacalcet HCl 30 MG TAB PO SCH (22:23)
[2017-08-10] MEDS: Lanthanum Carbonate 500 mg Tablet PO SCH (22:24)
[2017-08-10] MEDS: Mirtazapine 15 MG Soltab PO SCH (22:24)
[2017-08-10] MEDS: Silodosin 4 MG CAP PO SCH (22:24)
[2017-08-10] MEDS: Dutasteride 0.5 MG CAP PO SCH (22:24)
--- NOTE | 2017-08-11 05:57 | PRG ---
DATE OF SERVICE: 08/10/2017 SUBJECTIVE: Patient was seen and examined at bedside and overnight events noted. Patient denies any shortness of breath or chest pain or palpitation. No history of nausea or vomiting or diarrhea or f ever or chills or cramps. OBJECTIVE: GENERAL: This is a well-built male in no apparent distress. VITAL SIGNS: Temperature 97.9, pulse 98, respirations 21, blood pressure 113/41. HEENT: Atraumatic, normocephalic. Oral mucosa is moist. NECK: Supple. CARDIOVASCULAR: S1, S2 heard. Rate and rhythm regular. RESPIRATORY: Clear to auscultation. GASTROINTESTINAL: Abdomen is soft. MUSCULOSKELETAL: No tenderness, No edema. DERMATOLOGIC: No skin rash. NEUROLOGIC: Alert and awake and oriented x3. No focal neurologic deficits. Moving all the extremit ies. PSYCHIATRIC: Mood and affect normal. LABORATORY DATA: Potassium is 3.8, BUN is 41, creatinine is 7.3. ASSESSMENT AND PLAN: 1. End-stage renal disease. Continue on hemodialysis as tolerated. Agree with PD catheter removal due to failed PD. Continue antibiotics and follow up vancomycin trough level. 2. Anemia of end-stage renal disease. 3. Edema. 4. Hypertension, stable. 5. Sepsis per primary team. Continue to follow cultures which are negative so far. Continue antibiotics. Monitor vancomycin lev el and dose based on the level. We will follow.
[2017-08-11] MEDS: Piperacillin/Tazobactam 2.25 GM in Sodium Chloride 0.9% 100 ML IVPB SCH ×3 (06:29→22:10)
[2017-08-11 07:15] LABS: #Basophils 0.1 thou/uL (0.0-0.2); #Eosinphils 0.4 thou/uL (0.0-0.7); #Monocytes 0.7 thou/uL (0.11-0.59); #Neutrophils 5.7 thou/uL (1.40-6.50); %Basophils 0.6 % (0.0-1.0); %Eosinophils 4.8 % (0.0-10.0); %Lymphocytes 22.7 % (21.0-51.0); Hematocrit 26.5 % (42.0-52.0); Mean Platelet Volume 6.6 fL (7.4-10.4); Red Blood Cell (RBC) Count 2.57 mill/uL (4.70-6.10); White Blood Cell (WBC) Count 8.8 thou/uL (4.8-10.8)
[2017-08-11 07:35] LABS: Anion Gap 13 mmol/L (10-20); BUN (Urea Nitrogen) 33 mg/dL (8.4-25.7); Calc. Creatinine Clearance 13 mL/min (70-130); Calcium 8.2 mg/dL (7.8-10.44); Carbon Dioxide 29 mmol/L (23-31); Chloride 101 mmol/L (98-107); Estimated GFR-MDRD 7
--- NOTE | 2017-08-11 07:47 | EKG ---
Test Reason : Blood Pressure : / mmHG Vent. Rate : 116 BPM Atrial Rate : 120 BPM P-R Int : 000 ms QRS Dur : 098 ms QT Int : 358 ms P-R-T Axes : 000 018 128 degrees QTc Int : 497 ms Atrial fibrillation with rapid ventricular response T wave abnormality, consider lateral ischemia or digitalis effect Abnormal ECG When compared with ECG of 08-AUG-2017 20:46, (Unconfirmed) No significant change was found Confirmed by SAMANTHA LUNA, DR. S. ([id number]) on 08/11/2017 7:47:22 AM Referred By: JET DHILLON Confirmed By:DR. Rachel SINGH MD
[2017-08-11] MEDS: Digoxin 0.125 MG TAB PO SCH (08:29)
[2017-08-11] MEDS: Sevelamer Carbonate 800 MG TAB PO SCH ×2 (08:30→18:33)
[2017-08-11] MEDS: Pregabalin 75 MG CAP PO SCH ×2 (08:30→22:08)
[2017-08-11] MEDS ORDERED: Vancomycin HCl 1.5 GM in Sodium Chloride 0.9% 250 ML 300 ML IVPB SCH (08:30)
--- NOTE | 2017-08-11 09:02 | PDOC.FM ---
- Subjective Subjective: Patient resting comfortably this morning. No acute events overnight. No need for pressor support - Objective MAR Reviewed: Yes Vital Signs & Weight: Vital Signs (12 hours) Temp Pulse Resp BP BP Pulse Ox 08/11/17 08:29 96 08/11/17 07:15 97.9 F 96 23 H 100 08/11/17 07:14 97.9 F 96 23 H 109/59 L 100 08/11/17 03:17 98.6 F 90 17 110/36 L 100 08/10/17 23:12 98.4 F 89 16 120/56 L 100 Weight Weight 123.014 kg I&O: 08/10/17 08/11/17 08/12/17 06:59 06:59 06:59 Intake Total 3890 1925 Output Total 0 0 Balance 3890 1925 Result Diagrams: 08/11/17 Unknown 08/11/17 Unknown Phys Exam - Physical Examination Constitutional: NAD Respiratory: no wheezing, no rales Cardiovascular: RRR, no significant murmur Gastrointestinal: soft, non-tender Psychiatric: normal affect, A&O x 3 Dx/Plan (1) Severe sepsis Code(s): A41.9 - SEPSIS, UNSPECIFIED ORGANISM; R65.20 - SEVERE SEPSIS WITHOUT SEPTIC SHOCK Status: Resolved Plan: Patient currently on Zosyn and Vancomycin Cultures taken from each line are negative to date. No identifiable source of infection at this time MAP and systolic pressures are improving and patient will likely not need pressor support. Improving with albumin and fluids during dialysis (2) ESRD (end stage renal disease) on dialysis Code(s): N18.6 - END STAGE RENAL DISEASE; Z99.2 - DEPENDENCE ON RENAL DIALYSIS Status: Chronic Plan: PD no longer adequate. PD catheter removed by Dr. Aden and will get hemodialysis. Nephro managing. Left AV fistula will require 3 more weeks to mature (3) Atrial fibrillation Code(s): I48.91 - UNSPECIFIED ATRIAL FIBRILLATION Status: Chronic Qualifiers: Atrial fibrillation type: paroxysmal Qualified Code(s): I48.0 - Paroxysmal atrial fibrillation Plan: Patient with paroxysmal a-fib with RVR. Cardiology has been consulted and has started digoxin with initiation of a beta yolette once pressures allow. (4) Anemia of renal disease Code(s): D63.1 - ANEMIA IN CHRONIC KIDNEY DISEASE Status: Chronic Plan: Being managed by Nephrology. No blood products given this hospitalization - Plan Plan: Plan: -de escalate abx today -possible transfer to floor -Nephro, Cards, and Critical care following
--- NOTE | 2017-08-11 10:33 | PRG ---
DATE OF SERVICE: 08/11/2017 Mr. Hutton did well overnight. He did not fall asleep until late. He said he felt good last night. PHYSICAL EXAMINATION: VITAL SIGNS: He is afebrile, heart rate 96, respiratory rate 23. Oximetry is 100% on room air, bloo d pressure 100/59. LUNGS: His lungs are clear. CARDIOVASCULAR: Regular rhythm. ABDOMEN: Soft. LABORATORY: White count 8.8, hemoglobin 8.5, platelets 215. Electrolytes normal, creatinine is down to 9.23, BUN 33, potassium 3.8. Cultures have been reviewed and remain negative. PLAN: The peritoneal fluid was cultured on the and shows a possible growth so we will await alex ntification of a possible organism. If an organism is identified then antibiotics can be adjusted ap propriately.
[2017-08-11] MEDS ORDERED: Heparin 10,000 UNITS/ 10 ML VIAL ONE (12:00)
--- NOTE | 2017-08-11 12:15 | PDOC.CTH ---
Cardiology Progress Note - Subjective No new issues. Rates controlled on digoxin. BP remains marginal and will not tolerate other rate-limiting medications at this time. ROS otherwise negative. - Objective Vital Signs Temp Pulse Resp BP BP Pulse Ox 08/11/17 11:33 97.8 F 87 22 H 82/47 L 100 08/11/17 08:29 96 08/11/17 07:15 97.9 F 96 23 H 100 08/11/17 07:14 97.9 F 96 23 H 109/59 L 100 08/11/17 03:17 98.6 F 90 17 110/36 L 100 Weight 271 lb 3.2 oz 08/10/17 08/11/17 08/12/17 06:59 06:59 06:59 Intake Total 3890 1925 120 Output Total 0 0 Balance 3890 1925 120 - Physical Examination General/Neuro: alert & oriented x3, NAD Neck: carotid US brisk, no JVD present Lungs: CTA, unlabored respirations Heart: PMI normal, other: (irregular) Abdomen: no HSM, NT/ND, soft Extremities: + edema B Other PE findings: Neuro: no focal motor defs - Telemetry Telemetry Rhythm: AF with CVR - Labs Result Diagrams: 08/11/17 Unknown 08/11/17 Unknown Troponin/CKMB CK-MB (CK-2) 0.9 ng/mL (0-6.6) 08/08/17 21:37 Troponin I 0.053 ng/mL (< 0.028) H 08/09/17 04:11 - Assessment/Plan PAF: rates controlled. Continue digoxin and Eliquis. Follow up with Dr. Rahman as outpatient after discharge. ESRD: s/p transition to HD. Stable. Sepsis: hemodynamically improving. Remains on broad spectrum abx
--- NOTE | 2017-08-11 12:56 | PRG ---
DATE OF SERVICE: 08/11/2017 Mr. Hutton is being followed for possible sepsis and lactic acidosis and has markedly improved. He is slightly hypotensive; however, when aroused and beginning to talk, his map rises between 65 and 70. He is awake, alert, in no distress. He states he definitely feels improved over his admission. We are continuing him on broad-spectrum antibiotics, awaiting results of cultures. He is also being fol lowed by Cardiology for his atrial fibrillation, of which he states he has had a long history. Clini fatoumata, stable and will follow with the specialists.
[2017-08-11] MEDS: Apixaban 5 MG TAB PO SCH (22:07)
[2017-08-11] MEDS: Dutasteride 0.5 MG CAP PO SCH (22:07)
[2017-08-11] MEDS: Calcitriol 0.25 MCG CAP PO SCH (22:08)
[2017-08-11] MEDS: Cinacalcet HCl 30 MG TAB PO SCH (22:08)
[2017-08-11] MEDS: Mirtazapine 15 MG Soltab PO SCH (22:09)
[2017-08-11] MEDS: Lanthanum Carbonate 500 mg Tablet PO SCH (22:09)
[2017-08-11] MEDS: Silodosin 4 MG CAP PO SCH (22:10)
[2017-08-12 04:54] LABS: Vancomycin, Random 14.2 ug/mL (See Comment)
[2017-08-12] MEDS: Piperacillin/Tazobactam 2.25 GM in Sodium Chloride 0.9% 100 ML IVPB SCH (05:41)
--- NOTE | 2017-08-12 06:20 | PRG ---
DATE OF SERVICE: 08/11/2017 SUBJECTIVE: Patient was seen and examined at bedside and overnight events noted. Patient denies any shortness of breath or chest pain or palpitation. No history of nausea or vomiting or diarrhea or f ever or chills or cramps. OBJECTIVE: GENERAL: This is a well-built male, in no acute distress. VITAL SIGNS: Temperature 98.0, pulse 97, respiratory rate 16, blood pressure 125/67. HEENT: Atraumatic, normocephalic. Oral mucosa is moist. NECK: Supple. CARDIOVASCULAR: S1, S2 heard. Rate and rhythm regular. RESPIRATORY: Clear to auscultation. GASTROINTESTINAL: Abdomen is soft. MUSCULOSKELETAL: No tenderness. No edema. DERMATOLOGIC: No skin rash. NEUROLOGIC: Alert and awake and oriented x3. No focal neurologic deficits. Moving all the extremit ies. PSYCHIATRIC: Mood and affect normal. LABORATORY DATA: Potassium is 3.8, BUN is 33, creatinine is 9.23. ASSESSMENT AND PLAN: 1. End-stage renal disease. We will continue on hemodialysis. The patient hemodialysis tonny g this admission. 2. Anemia of end-stage renal disease. 3. Edema. 4. Hypertension. Overall, plan is to continue on hemodialysis as tolerated. Overall, all the cultures are negative so far.
[2017-08-12] MEDS: Pregabalin 75 MG CAP PO SCH ×2 (08:43→21:28)
[2017-08-12] MEDS: Sevelamer Carbonate 800 MG TAB PO SCH ×2 (08:43→18:05)
[2017-08-12] MEDS: Digoxin 0.125 MG TAB PO SCH (08:43)
[2017-08-12] MEDS: Triple Antibiotic Ointment 30 GM TUBE TOP SCH (08:45)
--- NOTE | 2017-08-12 09:06 | PDOC.FM ---
- Subjective Subjective: Patient doing very well this morning. He is conversant and appreciative of care he has been receiving. Feels as though his mentation and fatigue has improved with the initiation of hemodialysis. - Objective MAR Reviewed: Yes Vital Signs & Weight: Vital Signs (12 hours) Temp Pulse Resp BP Pulse Ox 08/12/17 08:43 87 08/12/17 08:00 98.2 F 87 20 100 08/12/17 07:53 98.2 F 89 20 95/43 L 100 08/12/17 03:49 98.4 F 97 18 103/57 L 93 L 08/11/17 23:47 98.6 F 90 16 94/49 L 98 Weight Weight 123.8 kg I&O: 08/11/17 08/12/17 08/13/17 06:59 06:59 06:59 Intake Total 1925 1020 Output Total 0 Balance 1925 1020 Result Diagrams: 08/11/17 Unknown 08/11/17 Unknown Phys Exam - Physical Examination Constitutional: NAD Respiratory: no wheezing, no rales Cardiovascular: RRR, no significant murmur Gastrointestinal: soft, non-tender Neurological: moves all 4 limbs Psychiatric: normal affect, A&O x 3 Dx/Plan (1) Severe sepsis Code(s): A41.9 - SEPSIS, UNSPECIFIED ORGANISM; R65.20 - SEVERE SEPSIS WITHOUT SEPTIC SHOCK Status: Resolved Plan: Patient currently on Zosyn and Vancomycin Cultures taken from each line are negative to date. No identifiable source of infection at this time MAP and systolic pressures are improving and patient will likely not need pressor support. Improving with albumin and fluids during dialysis Plan to transition to PO antibiotics and d/c central line (2) ESRD (end stage renal disease) on dialysis Code(s): N18.6 - END STAGE RENAL DISEASE; Z99.2 - DEPENDENCE ON RENAL DIALYSIS Status: Chronic Plan: PD no longer adequate. PD catheter removed by Dr. Aden and will get hemodialysis. Nephro managing. Left AV fistula will require 3 more weeks to mature (3) Atrial fibrillation Code(s): I48.91 - UNSPECIFIED ATRIAL FIBRILLATION Status: Chronic Qualifiers: Atrial fibrillation type: paroxysmal Qualified Code(s): I48.0 - Paroxysmal atrial fibrillation Plan: Patient with paroxysmal a-fib with RVR. Cardiology has been consulted and has started digoxin with initiation of a beta yolette once pressures allow. (4) Anemia of renal disease Code(s): D63.1 - ANEMIA IN CHRONIC KIDNEY DISEASE Status: Chronic Plan: Being managed by Nephrology. No blood products given this hospitalization - Plan Plan: Plan: -await further nephrology recommendations, d/c when they feel appropriate -transition to PO antibiotics -d/c central line
--- NOTE | 2017-08-12 10:10 | PRG ---
Patient Name: ANALISA EASON Date of service: 08/12/2017 Subjective: Patient was seen and examined at bedside and overnight events noted. Patient denies any shortness of breath or chest pain or palpitation. No history of nausea or vomiting or diarrhea or fever or chills or cramps. Objective: General: This is a well-built male in no apparent distress. Vital signs: Temperature 98.2, pulse 87, respirations 20, blood pressure 95/43. HEENT: Atraumatic, normocephalic. Oral mucosa is moist. Neck: Supple. Cardiovascular: S1 S2 heard. Rate and rhythm regular. Respiratory: Clear to auscultation. Gastrointestinal: Abdomen is soft. Musculoskeletal: No tenderness. No edema. Dermatologic: No skin rash. Neurologic: Alert and awake and oriented X3. No focal neurologic deficits. Moving all the extremit ies. Psychiatric: Mood and affect normal. LABORATORY DATA: Potassium is 3.8, BUN 33, calcium 9.2. ASSESSMENT AND PLAN: 1. End-stage renal disease. We will continue on hemodialysis as tolerated. Will have dialysis , and Tuesday. I did talk with the outpatient dialysis and they are ready for him . 2. Anemia of end-stage renal disease. 3. Edema, controlled. 4. Hypertension, currently hypotensive. 5. Will continue on dialysis Tuesday, and Tuesday as tolerated.
[2017-08-12] MEDS: metroNIDAZOLE 500 MG TAB PO SCH ×2 (14:48→21:31)
--- NOTE | 2017-08-12 16:09 | ADD-HP ---
ADDENDUM Addendum to the note of Dr. Ryan Young. Mr. Hutton is very pleasant this morning. He is awake, alert, mapped around 65. He has 1 peritoneal culture, possibly going anaerobe and we will continue to monitor this. However, he is on broad spect rum antibiotics including Zosyn and vancomycin. Depending on the results of this culture, he will li fer be ready for discharge by the morning. Clinically, he is stable and remains improved.
[2017-08-12] MEDS: Lanthanum Carbonate 500 mg Tablet PO SCH (21:27)
[2017-08-12] MEDS: Calcitriol 0.25 MCG CAP PO SCH (21:30)
[2017-08-12] MEDS: Cinacalcet HCl 30 MG TAB PO SCH (21:30)
[2017-08-12] MEDS: Apixaban 5 MG TAB PO SCH (21:30)
[2017-08-12] MEDS: Mirtazapine 15 MG Soltab PO SCH (21:31)
[2017-08-12] MEDS: Dutasteride 0.5 MG CAP PO SCH (21:31)
[2017-08-12] MEDS: Silodosin 4 MG CAP PO SCH (21:32)
--- NOTE | 2017-08-12 23:54 | PRG ---
DATE OF SERVICE: 08/12/2017 SUBJECTIVE: Mr. Hutton is doing well after removal of his peritoneal dialysis catheter; this morning it looks good. His left upper arm dialysis graft has good thrill and bruit. Plan at this time is to send a letter to the dialysis unit to begin accessing his left upper arm dialysis graft second week in August. He can report to see me mid to later August or first of September to hopefully remove h is dialysis catheter. At this point, I will see him as needed this hospitalization. Please call if necessary. Dr. Cadena was covering over the weekend.
--- NOTE | 2017-08-13 07:19 | PDOC.FM ---
- Subjective Subjective: Pt feels well today and has no specific complaints. Denies all symptoms in ROS. There were no acute events over night - Objective MAR Reviewed: Yes Vital Signs & Weight: Vital Signs (12 hours) Temp Pulse Resp BP Pulse Ox 08/13/17 04:00 98.5 F 91 20 99/57 L 98 08/12/17 20:00 98.1 F 95 18 105/69 96 Weight Weight 127.323 kg I&O: 08/12/17 08/13/17 08/14/17 06:59 06:59 06:59 Intake Total 1020 980 Balance 1020 980 Result Diagrams: 08/11/17 Unknown 08/11/17 Unknown <Vin Day - Last Filed: 08/13/17 07:16> - Objective Vital Signs & Weight: Vital Signs (12 hours) Temp Pulse Resp BP Pulse Ox 08/13/17 09:02 88 08/13/17 07:07 97.5 F L 88 18 95/52 L 96 08/13/17 04:00 98.5 F 91 20 99/57 L 98 Weight Weight 127.323 kg I&O: 08/12/17 08/13/17 08/14/17 06:59 06:59 06:59 Intake Total 1020 980 Balance 1020 980 Result Diagrams: 08/11/17 Unknown 08/11/17 Unknown <Navin Cuellar - Last Filed: 08/13/17 11:43> Phys Exam - Physical Examination Constitutional: NAD HEENT: moist MMs Neck: no JVD, full ROM Respiratory: clear to auscultation bilateral Cardiovascular: no significant murmur irregularly irregular Gastrointestinal: soft, non-tender, no distention, positive bowel sounds Musculoskeletal: no edema Neurological: non-focal Lymphatic: no nodes Psychiatric: normal affect, A&O x 3 Skin: no rash <Vin Day - Last Filed: 08/13/17 07:16> Dx/Plan (1) Severe sepsis Code(s): A41.9 - SEPSIS, UNSPECIFIED ORGANISM; R65.20 - SEVERE SEPSIS WITHOUT SEPTIC SHOCK Status: Resolved (2) Anemia of renal disease Code(s): D63.1 - ANEMIA IN CHRONIC KIDNEY DISEASE Status: Chronic (3) Atrial fibrillation Code(s): I48.91 - UNSPECIFIED ATRIAL FIBRILLATION Status: Chronic QualifierTitle: Atrial fibrillation type: paroxysmal Qualified Code(s): I48.0 - Paroxysmal atrial fibrillation (4) ESRD (end stage renal disease) on dialysis Code(s): N18.6 - END STAGE RENAL DISEASE; Z99.2 - DEPENDENCE ON RENAL DIALYSIS Status: Chronic - Plan Plan: 1. Severe sepsis -Pt on PO flagyl -Cultures taken from each line are negative to date. Likely 2/2 peritonitis 2. ESRD -PD no longer adequate. PD catheter removed by Dr. Aden and will get hemodialysis. Nephro managing. Left AV fistula will require 3 more weeks to mature 3. Afib -Patient with paroxysmal a-fib with RVR. Cardiology has been consulted and started digoxin -HR has been in the 90s over night -Pt is on eliquis 4. Anemia of renal disease -Manage by nephro <Vin Day - Last Filed: 08/13/17 07:16> Attending Addendum - Attending Addendum I personally evaluated the patient and discussed the management with Dr. Day. I agree with the History, Examination, Assessment and Plan documented above with any addition or exceptions noted below. Patient doing well. He is on oral abx and his labs have been stable. No evidence of continuing infection after removal of PD catheter. Patient has been cleared by cardiology from Afib standpoint. He has HD appointment in [place] this morning at 11:30 and he has been discharged in time for him to make that appointment. Follow up with PCP and outpatient forestry contractor. <Navin Cuellar - Last Filed: 08/13/17 11:43>
[2017-08-13 07:28] VITALS: BP 95/52; TEMP 97.5
[2017-08-13] MEDS: Digoxin 0.125 MG TAB PO SCH (09:02)
[2017-08-13] MEDS: Sevelamer Carbonate 800 MG TAB PO SCH (09:02)
[2017-08-13] MEDS: metroNIDAZOLE 500 MG TAB PO SCH (09:03)
[2017-08-13] MEDS: Pregabalin 75 MG CAP PO SCH (09:03)
[2017-08-13] MEDS: Triple Antibiotic Ointment 30 GM TUBE TOP SCH (09:15)
[2017-08-13] MEDS ORDERED: Triple Antibiotic Oint 1 GM Packet TOP SCH (09:15)
--- NOTE | 2017-08-15 06:44 | DIS-2 ---
DATE OF ADMISSION: 08/09/2017 DATE OF DISCHARGE: 08/13/2017 RESIDENT PHYSICIAN: Ryan Young MD ADMITTING ATTENDING: Zaid Franklin MD DISCHARGE ATTENDING: Navin Cuellar MD CONSULTS: 1. Pulmonology/Critical Care. 2. General Surgery. 3. Nephrology. 4. Cardiology. PROCEDURES: 1. Chest x-ray showing no active cardiopulmonary abnormalities. 2. Echocardiogram showing left ventricular function appearing to be normal. 3. Femoral central line placement on 08/09/2017. 4. Removal of peritoneal dialysis catheter by Dr. Aden on 08/10/2017. PRIMARY DIAGNOSES: 1. Severe sepsis likely secondary to bacterial peritonitis. 2. End-stage renal disease. 3. Atrial fibrillation with rapid ventricular response. SECONDARY DIAGNOSES: 1. Systolic congestive heart failure. 2. Chronic anemia secondary to renal disease. DISCHARGE MEDICATIONS: 1. Renvela 800 mg p.o. b.i.d. with meals. 2. Sensipar 60 mg p.o. at bedtime. 3. Vitamin D3 of 2000 units p.o. at bedtime. 4. Calcitriol 0.5 mcg p.o. at bedtime. 5. Fosrenol 1000 mg p.o. at bedtime. 6. Avodart 0.5 mg p.o. at bedtime. 7. Rapaflo 4 mg p.o. at bedtime. 8. Remeron 15 mg p.o. at bedtime. 9. Eliquis 2.5 mg p.o. at bedtime. 10. Digoxin 0.0625 mg p.o. daily. 11. Metronidazole 500 mg p.o. t.i.d. x7 days. DISCONTINUED MEDICATIONS: 1. Zosyn 08/09 to 08/13. 2. Vancomycin 08/09 to 08/13. 3. Albumin given with hemodialysis. 4. Ceftriaxone x1. 5. Levaquin x1. HISTORY OF PRESENT ILLNESS AND HOSPITAL COURSE: A 71-year-old gentleman presenting to the ER after feeling weak and "toxic" for the last 3 days. The patient regularly does peritoneal dialysis at home, but feels as though this is not working as it had before. He is reporting low systolic blood pressures at home ranging between 80 and 200 mmHg. The patient had a left AV fistula placed last week with Dr. Aden and has not been feeling well since that time. He denies any fever, shortness of breath, chest pain, diarrhea, or syncope on admission. In the ER, the patient received Levaquin, vancomycin, and Zosyn and blood cultures were drawn. Patient qualifies as severe sepsis with leukocytosis and severe hypertension. A central line was placed in case pressor support was needed during admission. Unfortunately, cultures from the peritoneal dialysis catheter were not drawn before the antibiotics were started. Blood cultures wound up being negative. Nephrology was consulted for the dialysis issues. The patient was converted to hemodialysis and his peritoneal dialysis catheter was removed by Dr. Aden. He was set up with outpatient hemodialysis on Tuesday, , and Tuesday. Despite his low systolic blood pressure and mean arterial pressure, the patient did not show any evidence of end organ damage otherwise. In the hospital, patient was found to be in atrial fibrillation with rapid ventricular response. Cardiology was consulted and patient was started on low dose of digoxin since he cannot tolerate beta yolette therapy. He was cleared from cardiology standpoint. Told to follow up in the outpatient setting with Dr. Soares. The patient did well while in the MICU and was eventually transferred to telemetry before being discharged. He was covered with Zosyn and vancomycin throughout his hospital stay and eventually converted to metronidazole for p.o. antibiotic coverage. This is likely related to a bacterial peritonitis from his peritoneal dialysis catheter. However, cultures were not drawn before the antibiotics were started. DISPOSITION: Stable. DISCHARGE INSTRUCTIONS: 1. Location: Home. 2. Diet: Heart healthy and consistent carbohydrate. 3. Activity: As tolerated. 4. Followup: Follow up with PCP in 3-[address] Mckinley in 1 week. GEM
--- NOTE | 2017-08-16 08:48 | PQF ---
ANALISA EASONHEAVEN [id number] CU- B05 [id number] CLINICAL DOCUMENTATION CLARIFICATION FORM: POST DISCHARGE Addendum to original discharge summary date: ____ Late entry note date: __ DATE: 08/16/2017 ATTN: DR. WONG Please exercise your independent, professional judgment in responding to the clarification form. Clinical indicators are provided on the bottom of this form for your review Please check appropriate box(s): [ ] Sepsis due to: (Pna, UTI, gangrenous gall bladder, etc.) Due to: [ ] Device (please specify) [ ] Implant [ ] Graft [ ] Infusion [ ] SIRS due to non-infectious process (please specify etiology) [ ] with organ dysfunction [ ] without organ dysfunction [ ] Severe sepsis with acute organ dysfunction of: (Examples: respiratory failure, encephalopathy, acute kidney failure, other) [ ] Localized infection without sepsis [ ] Other diagnosis [ ] Unable to determine In addition, please specify: Present on Admission (POA): [ ] Yes [ ] No [ ] Unable to determine For continuity of documentation, please document condition throughout progress notes and discharge summary. Thank You. CLINICAL INDICATORS - SIGNS / SYMPTOMS / LABS H&P - WEAKNESS, ACIDOSIS, SEPSIS INADEQUATE PERITONEAL DIALYSIS CATH 08/12 PN - SEVERE SEPSIS - "NO IDENTIFIABLE SOURCE OF INFECTION" DS - SEVERE SEPSIS SECONDARY TO BACTERIAL PERITONITIS BACTERIAL PERITONITIS FROM PERITONEAL DIALYSIS CATHETER OP - INADEQUATE PERITONEAL DIALYSIS, REMOVAL OF PERITONEAL CATH RISK FACTORS SEPSIS ACIDOSIS TREATMENTS: Initiation Sepsis Protocol Daily CBC Blood/sputum/wound cultures IV antibiotics - broad spectrum (This form is maintained as a part of the permanent medical record) 2015 [employer]. All Rights Reserved Jessi Greene, CCS, [facility] [email or web address] [phone] I did not take care of this patient beyond the admission date. Please refer to the relevant provider. Odette Wong MD [facility] SYSTEMSilvana
--- NOTE | 2017-08-23 08:07 | PQF ---
ANALISA EASONKAREN [id number] [facility]- B05 [id number] CLINICAL DOCUMENTATION CLARIFICATION FORM: POST DISCHARGE Addendum to original discharge summary date: ____ Late entry note date: __ DATE: 08/16/2017 ATTN: DR. FOSTER Please exercise your independent, professional judgment in responding to the clarification form. Clinical indicators are provided on the bottom of this form for your review Please check appropriate box(s): [ ] Sepsis due to: (Pna, UTI, gangrenous gall bladder, etc.) Due to: [ ] Device (please specify) [ ] Implant [ ] Graft [ ] Infusion [ ] SIRS due to non-infectious process (please specify etiology) [ ] with organ dysfunction [ ] without organ dysfunction [ ] Severe sepsis with acute organ dysfunction of: (Examples: respiratory failure, encephalopathy, acute kidney failure, other) [ ] Localized infection without sepsis [ ] Other diagnosis [ X] Unable to determine- at the time of my seeing patient, he was already improved. This would be best clarified by the admitting provider. In addition, please specify: Present on Admission (POA): [ ] Yes [ ] No [ ] Unable to determine For continuity of documentation, please document condition throughout progress notes and discharge summary. Thank You. CLINICAL INDICATORS - SIGNS / SYMPTOMS / LABS H&P - WEAKNESS, ACIDOSIS, SEPSIS INADEQUATE PERITONEAL DIALYSIS CATH 08/12 PN - SEVERE SEPSIS - "NO IDENTIFIABLE SOURCE OF INFECTION" DS - SEVERE SEPSIS SECONDARY TO BACTERIAL PERITONITIS BACTERIAL PERITONITIS FROM PERITONEAL DIALYSIS CATHETER OP - INADEQUATE PERITONEAL DIALYSIS, REMOVAL OF PERITONEAL CATH RISK FACTORS SEPSIS ACIDOSIS TREATMENTS: Initiation Sepsis Protocol Daily CBC Blood/sputum/wound cultures IV antibiotics - broad spectrum (This form is maintained as a part of the permanent medical record) 2015 [facility], [employer]. All Rights Reserved Jessi Greene, GELY, [facility] [email or web address] [phone] MTDD
--- NOTE | 2017-09-17 14:06 | EKG ---
Test Reason : Blood Pressure : / mmHG Vent. Rate : 126 BPM Atrial Rate : 088 BPM P-R Int : 000 ms QRS Dur : 086 ms QT Int : 290 ms P-R-T Axes : 000 011 146 degrees QTc Int : 420 ms Atrial fibrillation with rapid ventricular response No ST/T wave changes Abnormal ECG Confirmed by COLLINS BRADLEY DO ([id number]), acquisitions editor SERAFIN STREETER ([id number]) on 09/17/2017 2:05:31 PM Referred By: Confirmed By:COLLINS BRADLEY DO
== END 2017-08-13 10:05 | disposition home or self-care (01) | DRG 981 ==
LOC: ERS 20:18 → IMCU/EMU 23:25 → 2NO 08-12 17:02
PROVIDERS: ADMIT Emergency Medicine; ATTEND Emergency Medicine
PROC: 5A1D70Z Performance of Urinary Filtration, Intermittent, Less than 6 Hours Per Day (ICD-10-PCS; 2017-08-09)
PROC: 06HY33Z Insertion of Infusion Device into Lower Vein, Percutaneous Approach (ICD-10-PCS; 2017-08-09)
PROC: 0WPG33Z Removal of Infusion Device from Peritoneal Cavity, Percutaneous Approach (ICD-10-PCS; principal; 2017-08-10)
DX: T85.71XA Infection and inflammatory reaction due to peritoneal dialysis catheter, initial encounter (principal); A41.9 Sepsis, unspecified organism; R65.20 Severe sepsis without septic shock; I13.2 Hypertensive heart and chronic kidney disease with heart failure and with stage 5 chronic kidney disease, or end stage renal disease; E87.2 Acidosis; N18.6 End stage renal disease; K65.9 Peritonitis, unspecified; I48.0 Paroxysmal atrial fibrillation; N25.81 Secondary hyperparathyroidism of renal origin; I50.22 Chronic systolic (congestive) heart failure; B96.89 Other specified bacterial agents as the cause of diseases classified elsewhere; N40.0 Benign prostatic hyperplasia without lower urinary tract symptoms; Z79.01 Long term (current) use of anticoagulants; D63.1 Anemia in chronic kidney disease; E83.39 Other disorders of phosphorus metabolism
CPT/HCPCS: 36415; 71010; 80048; 80053; 80202; 82533; 82553; 82607; 82747; 83605; 83690; 83735; 84100; 84145; 84484; 85025; 85060; 85610; 85730; 87040; 87070; 87076; 87205; 87340; 89051; 90935; 90945; 93005; 93010; 93306; 96365; 96375; A4216; G0257; J1644; J1885; J1956; J2175; J2250; J2543; J2704; J2997; J3010; J3370; J7050

== ENCOUNTER 2018-12-11 18:56 | Inpatient (IN) | payer MEDICARE, BC ==
[2018-12-11 19:43] LABS: #Basophils 0.1 thou/uL (0.0-0.2); #Eosinphils 0.2 thou/uL (0.0-0.7); #Lymphocytes 1.2 thou/uL (1.20-3.40); #Monocytes 0.6 thou/uL (0.11-0.59); %Basophils 0.8 % (0.0-1.0); %Eosinophils 2.8 % (0.0-10.0); %Lymphocytes 17.4 % (21.0-51.0); %Monocytes 8.7 % (0.0-10.0); %Neutrophils 70.2 % (42.0-75.0); Hemoglobin 9.6 g/dL (14.0-18.0); Mean Corpuscular HGB CONC 32.6 g/dL (32.0-36.0); Mean Corpuscular Hemoglobin 31.4 pg (27.0-31.0); Mean Corpuscular Volume 96.4 fL (78.0-98.0); Mean Platelet Volume 7.6 fL (7.4-10.4); Platelet Count 285 thou/uL (130-400); RBC Distribution Width 16.2 % (11.5-14.5); Red Blood Cell (RBC) Count 3.04 mill/uL (4.70-6.10); White Blood Cell (WBC) Count 7.1 thou/uL (4.8-10.8)
[2018-12-11 20:25] LABS: ALT (SGPT) 16 U/L (8-55); AST (SGOT) 11 U/L (5-34); Alkaline Phosphatase 47 U/L (40-150); Anion Gap 20 mmol/L (10-20); BUN (Urea Nitrogen) 75 mg/dL (8.4-25.7); Bilirubin, Total 0.8 mg/dL (0.2-1.2); Calc. Creatinine Clearance 0 mL/min (70-130); Calcium 9.9 mg/dL (7.8-10.44); Carbon Dioxide 25 mmol/L (23-31); Chloride 103 mmol/L (98-107); Estimated GFR-MDRD 4; Globulin 3.1 g/dL (2.4-3.5); Glucose 103 mg/dL (83-110); Potassium 6.4 mmol/L (3.5-5.1); Protein, Total 7.1 g/dL (5.8-8.1); Sodium 142 mmol/L (136-145)
[2018-12-11 23:24] LABS: HBSAg Index 0.53 S/CO (0-0.99); Hep B Surf Ag Non-Reactive S/CO (NonReactive)
[2018-12-12 00:32] LABS: Hep B Surf AB Indeterminate (NonReactive)
[2018-12-12 00:33] LABS: HBSAB Concentration 11.91 mIU/mL
--- NOTE | 2018-12-12 07:38 | CON ---
DATE OF CONSULTATION: 12/11/2018 CONSULTING PHYSICIAN: REASON FOR CONSULT: Hyperkalemia. REASON FOR ADMISSION: Abnormal . HISTORY OF PRESENT ILLNESS: A 73-year-old male with history of end-stage renal disease, on hemodialysis; atrial fibrillation; hypertension; congestive heart failure, came to the hospital with elevated potassium and was found to have potassium of 6.4 and PCP sent him to ER. The patient denies any symptoms. No nausea or vomiting. He missed 2 sessions of dialysis last week and he was having some diarrhea. No chest pain or palpitation. No fever or chills. No nausea or vomiting. PAST MEDICAL HISTORY: Positive for end-stage renal disease, on hemodialysis Tuesday, , and Tuesday; BPH; atrial fibrillation; hypertension; and CHF. PAST SURGICAL HISTORY: Right knee surgery, tonsillectomy, dialysis catheter placement, and AV fistula placement. HOME MEDICATIONS: Reviewed. ALLERGIES: NO KNOWN DRUG ALLERGIES. SOCIAL HISTORY: No smoking, alcohol, or illicit drug abuse. FAMILY HISTORY: No history of any kidney disease. REVIEW OF SYSTEMS: CONSTITUTIONAL: Negative for weight loss or gain, ability to conduct usual activities. SKIN: Negative for rash, itching. EYES: Negative for double vision, pain. ENT/MOUTH: Negative for nose bleeding, neck stiffness, pain, tenderness. CARDIOVASCULAR: Negative for palpitations, dyspnea on exertion, orthopnea. RESPIRATORY: Negative for shortness of breath, wheezing, cough, hemoptysis, fever or night sweats. GASTROINTESTINAL: Negative for poor appetite, abdominal pain, heartburn, nausea, vomiting, constipation, or diarrhea. GENITOURINARY: Negative for urgency, frequency, dysuria, nocturia. MUSCULOSKELETAL: Negative for pain, swelling. NEUROLOGIC/PSYCHIATRIC: Negative for anxiety, depression. ALLERGY/IMMUNOLOGIC: Negative for skin rash, bleeding tendency. PHYSICAL EXAMINATION: GENERAL: Reveals a well-built male, in no apparent distress. VITAL SIGNS: Temperature 96, pulse 89, respiratory rate 18, blood pressure 132/77. HEENT: Atraumatic and normocephalic. Oral mucosa is moist. NECK: Supple. CVS: S1 and S2 heard. Regular rate and rhythm. RESPIRATORY: Clear. GASTROINTESTINAL: Abdomen is soft. MUSCULOSKELETAL: 1+ edema. DERMATOLOGIC: No skin rash. NEUROLOGIC: Alert and awake. PSYCHIATRIC: Mood and affect normal. LABORATORY DATA: Potassium is 6.4, BUN is 75, and creatinine is 15.9. ASSESSMENT AND PLAN: 1. Hyperkalemia. We will have to emergent dialysis. 2. Anemia. Monitor hemoglobin. 3. Edema. 4. Hypertension. 5. End-stage renal disease, continue hemodialysis as tolerated. 6. Plan is to have emergent dialysis continue to follow. Job ID: [id number]
[2018-12-12 10:24] LABS: Anion Gap 15 mmol/L (10-20); BUN (Urea Nitrogen) 44 mg/dL (8.4-25.7); Calc. Creatinine Clearance 0 mL/min (70-130); Calcium 9.8 mg/dL (7.8-10.44); Carbon Dioxide 26 mmol/L (23-31); Chloride 104 mmol/L (98-107); Estimated GFR-MDRD 5; Glucose 101 mg/dL (83-110); Potassium 5.4 mmol/L (3.5-5.1); Sodium 140 mmol/L (136-145)
[2018-12-12] MEDS ORDERED: Acetaminophen 325 MG TAB PO PRN (12:21)
[2018-12-12] MEDS ORDERED: Senokot S 8.6-50 MG TAB PO PRN (12:21)
[2018-12-12] MEDS ORDERED: Guaifenesin DM 100-10/5 ML UDCUP PO PRN (12:21)
[2018-12-12] MEDS ORDERED: Diltiazem 125 MG/25 ML ONE (16:43)
[2018-12-12] MEDS: Sevelamer Carbonate 800 MG TAB PO SCH (17:02)
[2018-12-12] MEDS ORDERED: Diltiazem 125 MG in Sodium Chloride 0.9% 100 ML IVPB SCH (17:30)
--- NOTE | 2018-12-12 17:53 | HP ---
REASON FOR ADMISSION: Atrial fibrillation with RVR, volume overload, hyperkalemia. HISTORY OF PRESENTING ILLNESS: The patient gives history of having diarrhea for the last 1 week or so. He had gone to see his primary care physician yesterday. He was told his potassium is high and was asked to go to the emergency room. The patient has history of end-stage renal disease on hemodialysis. He did not have his dialysis on due to severe diarrhea, which was watery and nearly 5 to 6 episodes per day from last one week. No blood in the stool. On Tuesday, the patient had 3 hours of dialysis as he wanted to use the restroom to pass stool and was disconnected after 3 hours from dialysis machine. Currently has no complaints of chest pain or palpitation. The patient is in atrial fibrillation with RVR, post two sessions of dialysis. He had emergent dialysis on arrival with 4-hour session overnight and has had a 3-hour session with removal of 2 more L this morning. He has known history of atrial fibrillation and says his heart rate usually tends to be in the 100 to 120 range. He in fact wanted to sign out against advice and go home, but then finally decided to stay. PAST MEDICAL AND SURGICAL HISTORY: History of end-stage renal disease on hemodialysis on Tuesdays, , and Saturdays; chronic atrial fibrillation, hypertension, prior history of CHF with ejection fraction of around 35%, benign prostatic hypertrophy, right knee surgery, tonsillectomy, left upper extremity dialysis access procedures including fistula. PERSONAL HISTORY: Does not abuse alcohol or drugs. No history of smoking. FAMILY HISTORY: Lives with his . Both parents are . Father in his 90s. Mother in her 80s. They did not have any kidney disease. ALLERGIES: NO KNOWN DRUG ALLERGIES. CURRENT MEDICATIONS: 1. Calcitriol 0.5 mcg p.o. at bedtime. 2. Vitamin D3 2000 units p.o. at bedtime. 3. Sensipar 60 mg p.o. at bedtime. 4. Avodart 0.5 mg p.o. at bedtime. 5. Sevelamer 800 mg p.o. twice daily. 6. Eliquis 2.5 mg p.o. at bedtime. 7. Mirtazapine 30 mg p.o. at bedtime. 8. Risperdal at bedtime, unknown dose for PTSD. CODE STATUS: Full. Power of city attorney is his . REVIEW OF SYSTEMS: CONSTITUTIONAL: Negative for weight loss or gain, ability to conduct usual activities. SKIN: Negative for rash, itching. EYES: Negative for double vision, pain. ENT/MOUTH: Negative for nose bleeding, neck stiffness, pain, tenderness. CARDIOVASCULAR: Negative for palpitations, dyspnea on exertion, orthopnea. RESPIRATORY: Negative for shortness of breath, wheezing, cough, hemoptysis, fever or night sweats. GASTROINTESTINAL: Negative for poor appetite, abdominal pain, heartburn, nausea , vomiting, constipation, or diarrhea. GENITOURINARY: Negative for urgency, frequency, dysuria, nocturia. MUSCULOSKELETAL: Negative for pain, swelling. NEUROLOGIC/PSYCHIATRIC: Negative for anxiety, depression. ALLERGY/IMMUNOLOGIC: Negative for skin rash, bleeding tendency. PHYSICAL EXAMINATION: GENERAL: The patient is a 73-year-old male, who is currently in atrial fibrillation with RVR, but does not complain of any shortness of breath or palpitations as such. VITAL SIGNS: Blood pressure 134/76, pulse 150 per minute, respiratory rate 20 per minute, temperature 98.2 degrees Fahrenheit, saturating 95% on room air. NECK: Supple. No elevated JVD. HEENT: Eyes; extraocular muscles intact. Pupils reacting to light. Oral cavity, mucous membranes are moist. No exudates or congestion. CARDIOVASCULAR: S1 and S2 heard. Irregular rhythm. No murmur. RESPIRATORY: Air entry 1+ bilateral. No rales or rhonchi. ABDOMEN: Soft. Bowel sounds heard. No tenderness, rigidity, or guarding. EXTREMITIES: Mild peripheral edema. No calf tenderness. VASCULAR: Peripheral pulses 1+ bilateral. No ischemic ulcerations or gangrene. CENTRAL NERVOUS SYSTEM: No gross focal deficits noted. The patient is alert, awake, oriented well. PSYCHIATRIC: The patient is a bit anxious, otherwise no hallucinations or delusions. LABORATORY DATA: Hemoglobin and hematocrit are 9.6 and 29, platelet count 285 with 70% neutrophils. Initial potassium of 6.4, subsequent levels of 5.4 after 1st session of dialysis. Initial BUN and creatinine are 75 and 15.9. Serum bicarb was 25 on admission, albumin is 4.0. Liver enzymes within normal limits. Serum glucose 103. EKG done shows atrial fibrillation with RVR at 146 beats per minute. CLINICAL IMPRESSION AND PLAN: The patient will be admitted to telemetry. He was initially placed under observation and the plan was to send him home after two sessions of dialysis, but the patient developed atrial fibrillation with RVR after his second session of dialysis and he is being admitted as inpatient to telemetry. He will be given 15 mg of Cardizem push and he will be on Cardizem 5 mg an hour. We will also add Lopressor 25 mg twice daily, low-dose aspirin, and increase his Eliquis to 2.5 mg twice daily. Echo with 2D Doppler will be obtained for LV function and to rule out thrombus. Cardiology consultation with Dr. Abraham, Nephrology consultation with Dr. Mckinley. We will continue his calcitriol, vitamin D3, Sensipar, and sevelamer. The patient takes Risperdal and mirtazapine for PTSD symptoms and we will continue the same. We will continue to closely monitor him on telemetry. Code status was discussed and he is a full code. Job ID: [id number] [facility]
[2018-12-12] MEDS: Calcitriol 0.25 MCG CAP PO SCH (18:30)
--- NOTE | 2018-12-12 18:35 | PRG ---
DATE OF SERVICE: 12/12/2018 SUBJECTIVE: Patient was seen and examined at bedside and overnight events noted. Patient denies any shortness of breath or chest pain or palpitation. No history of nausea or vomiting or diarrhea or fever or chills or cramps. OBJECTIVE: GENERAL: This is a well-build male, in no apparent distress. VITAL SIGNS: Temperature 96, pulse 79, respiratory rate 18, blood pressure 112/72. HEENT: Atraumatic, normocephalic. Oral mucosa is moist NECK: Supple. CARDIOVASCULAR: S1, S2 heard. Rate and rhythm regular. RESPIRATORY: Clear to auscultation. GASTROINTESTINAL: Abdomen is soft. MUSCULOSKELETAL: No tenderness. No edema. DERMATOLOGIC: No skin rash. NEUROLOGIC: Alert and awake and oriented X3. No focal neurologic deficits. Moving all the extremities. PSYCHIATRIC: Mood and affect normal. LABORATORY DATA: Potassium is 5.4, BUN is 44, creatinine is 11.2. ASSESSMENT AND PLAN: 1. End-stage renal disease. Continue on dialysis. 2. Hyperkalemia. Limit potassium intake. 3. . 4. Continue dialysis as tolerated. Job ID: [id number]
[2018-12-12] MEDS: Apixaban 2.5 MG TAB PO SCH (20:36)
[2018-12-12] MEDS: Dutasteride 0.5 MG CAP PO SCH (20:37)
[2018-12-12] MEDS: Mirtazapine 15 MG Soltab PO SCH (20:37)
[2018-12-12] MEDS: Cinacalcet HCl 30 MG TAB PO SCH (20:38)
[2018-12-12] MEDS: Metoprolol Tartrate 25 MG TAB PO SCH (20:40)
[2018-12-12] MEDS ORDERED: Apixaban 5 MG TAB PO SCH (21:00)
[2018-12-12] MEDS ORDERED: Calcitriol 0.25 MCG CAP PO SCH (21:00)
[2018-12-13 04:12] VITALS: BMI 39.3
[2018-12-13 06:28] LABS: #Eosinphils 0.2 thou/uL (0.0-0.7); #Lymphocytes 1.6 thou/uL (1.20-3.40); #Neutrophils 5.2 thou/uL (1.40-6.50); %Basophils 0.6 % (0.0-1.0); %Eosinophils 2.4 % (0.0-10.0); %Lymphocytes 19.3 % (21.0-51.0); %Monocytes 12.6 % (0.0-10.0); %Neutrophils 65.1 % (42.0-75.0); Hemoglobin 10.5 g/dL (14.0-18.0); Mean Corpuscular HGB CONC 31.6 g/dL (32.0-36.0); Mean Platelet Volume 7.6 fL (7.4-10.4); Platelet Count 279 thou/uL (130-400); RBC Distribution Width 16.4 % (11.5-14.5); Red Blood Cell (RBC) Count 3.38 mill/uL (4.70-6.10)
[2018-12-13 07:14] LABS: Anion Gap 18 mmol/L (10-20); BUN (Urea Nitrogen) 32 mg/dL (8.4-25.7); Calc. Creatinine Clearance 14 mL/min (70-130); Calcium 9.4 mg/dL (7.8-10.44); Carbon Dioxide 26 mmol/L (23-31); Chloride 102 mmol/L (98-107); Estimated GFR-MDRD 7; Glucose 99 mg/dL (83-110); Sodium 141 mmol/L (136-145)
[2018-12-13] MEDS: Sevelamer Carbonate 800 MG TAB PO SCH ×2 (10:01→18:34)
[2018-12-13] MEDS: Apixaban 2.5 MG TAB PO SCH ×2 (10:30→21:21)
[2018-12-13] MEDS: Aspirin 81 mg Enteric Coated Tablet PO SCH (10:30)
[2018-12-13] MEDS: Metoprolol Tartrate 25 MG TAB PO SCH ×2 (10:45→21:11)
[2018-12-13] MEDS ORDERED: Digoxin 0.5 MG/2 ML AMP SLOW IVP SCH (16:15)
[2018-12-13] MEDS ORDERED: Diltiazem 125 MG in Sodium Chloride 0.9% 100 ML IVPB SCH (16:23)
--- NOTE | 2018-12-13 17:36 | PRG ---
DATE OF SERVICE: 12/13/2018 SUBJECTIVE: Patient was seen and examined at bedside and overnight events noted. Patient denies any shortness of breath or chest pain or palpitation. No history of nausea or vomiting or diarrhea or fever or chills or cramps. OBJECTIVE: GENERAL: This is a well-built male, in no apparent distress. VITAL SIGNS: Temperature 98.6. Heart rate 91. Respiratory rate 18. Blood pressure 140/92. HEENT: Atraumatic, normocephalic. Oral mucosa is moist NECK: Supple. CARDIOVASCULAR: S1, S2 heard. Rate and rhythm regular. RESPIRATORY: Clear to auscultation. GASTROINTESTINAL: Abdomen is soft. MUSCULOSKELETAL: No tenderness. No edema. DERMATOLOGIC: No skin rash. NEUROLOGIC: Alert and awake and oriented X3. No focal neurologic deficits. Moving all the extremities. PSYCHIATRIC: Mood and affect normal. LABORATORY DATA: Potassium is 5.0, BUN is 32, creatinine 9.0. ASSESSMENT AND PLAN: 1. End-stage renal disease. Continue on hemodialysis as tolerated. 2. Hyperkalemia. 3. Edema. 4. Hypertension. 5. Anemia. 6. Atrial fibrillation per Cardiology. Continue dialysis as tolerated Tuesday, , and Tuesday. Job ID: [id number]
[2018-12-13] MEDS: Calcitriol 0.25 MCG CAP PO SCH (18:34)
[2018-12-13] MEDS: Dutasteride 0.5 MG CAP PO SCH (21:11)
[2018-12-13] MEDS: Mirtazapine 15 MG Soltab PO SCH (21:12)
[2018-12-13] MEDS: Cinacalcet HCl 30 MG TAB PO SCH (21:21)
--- NOTE | 2018-12-13 22:00 | CON ---
DATE OF CONSULTATION: HISTORY OF PRESENT ILLNESS: Michael Hutton is a 73-year-old black male with end- stage renal disease on dialysis and longstanding history of atrial fibrillation. He states that he was first diagnosed with a fib in 2003. He denies ever having any chest discomfort, shortness of breath, or heart failure. He does have problems with hypotension with dialysis. He was admitted here in July 2017 and was evaluated by Dr. Weston Soares at that time. He was placed on very low-dose digoxin. In discussing with Mr. Hutton, he states that he does not recognize the name digoxin and does not recall ever being on that, although, was on his discharge summary in July 2017 on his discharge medications. He states his dialysis that he has problems with hypotension. Currently, he does not take any medication for rate control. He has had problems with diarrhea recently, missed a day of dialysis was discovered to have hyperkalemia, came to the emergency room and had atrial fibrillation with rapid ventricular response. Most of the time, he does not notice any palpitations. He also states that he is being evaluated for possible renal transplant. He had a nuclear stress test performed by Dr. Rahman about 3 months ago and was told this was normal. PAST MEDICAL HISTORY: History of hypertension, although, now he is hypotensive. End-stage renal disease, chronic atrial fibrillation, and BPH. PAST SURGICAL HISTORY: Right knee surgery, tonsillectomy, and AV fistula. MEDICATIONS: 1. Calcitriol 0.5 mcg at bedtime. 2. Sensipar 60 mg at bedtime. 3. Avodart 0.5 at bedtime. 4. Sevelamer 800 mg b.i.d. 5. Eliquis 2.5 mg at bedtime. 6. Mirtazapine 30 mg at bedtime. 7. Risperdal p.r.n. 8. Vitamin D3 of 2000 units at bedtime. ALLERGIES: NONE. SOCIAL HISTORY: He does not smoke or drink. FAMILY HISTORY: Negative for coronary artery disease. REVIEW OF SYSTEMS: A 12-point review of systems is otherwise unremarkable. PHYSICAL EXAMINATION: VITAL SIGNS: Blood pressure 140/92 and pulse 91. HEENT: PERRL. NECK: Supple. CHEST: Clear. CARDIAC: S1 and S2 normal without any S3, S4, or murmurs. ABDOMEN: Normal bowel sounds without tenderness. The abdomen is obese. EXTREMITIES: Revealed no clubbing, cyanosis, or edema. NEUROLOGIC: Grossly intact. SKIN: Warm and dry. LABORATORY DATA: EKG revealed atrial fibrillation with rapid ventricular response of [address] and T-wave changes. Hemoglobin 10.5, hematocrit 33.1, white count 8000, platelets 279,000. Sodium 141, potassium was 6.4 on admission and is now 5.0, chloride 102, carbon dioxide 26, BUN 32, and creatinine 9.05. Echocardiogram revealed this study to be technically difficult. Overall, left ventricular function was mildly depressed with ejection fraction of 40% to 45%, moderate left atrial enlargement, mild mitral regurgitation, mild tricuspid regurgitation. IMPRESSION: 1. Chronic atrial fibrillation since at least 2003 according to the patient. He is on no rate controlling medications. When he was discharged in July 2017, he was on digoxin 0.0625, but he does not recall that medication. He also is on Eliquis 2.5 mg daily. However, with current recommendations, he should probably be on 5 mg b.i.d. 2. History of hypertension. However, he is hypotensive for the most part now. 3. End-stage renal disease, on dialysis. 4. Probable nonischemic cardiomyopathy with ejection fraction currently at 40% to 45% and normal nuclear stress study 3 months ago. PLAN: The patient currently is on intravenous Cardizem and this will be slowly tapered. We given a dose of digoxin 0.5 mg IV and then started on 0.0625 daily for better rate control. Also, consideration should be given to placing him on Eliquis 5 mg b.i.d., which will be the usual dose in someone who is under 80 and his weight is greater than 60 kg. Job [facility] [id number] [facility]
--- NOTE | 2018-12-14 08:20 | PRG ---
DATE OF SERVICE: 12/13/2018 SUBJECTIVE: The patient is feeling well. He actually has no complaints. OBJECTIVE: VITAL SIGNS: Temperature 97.3, pulse 85, respirations 18, O2 saturation 96% on room air. GENERAL APPEARANCE: Obese, age-appropriate male, in no distress. Awake and alert. HEART: Irregular with 1/6 murmur. LUNGS: Clear to auscultation bilaterally. ABDOMEN: Soft, nontender, and nondistended. Positive bowel sounds. EXTREMITIES: No cyanosis, clubbing, or edema. LABORATORY DATA: White count 8.0, hemoglobin 10.5, platelets 279. Sodium 141, potassium 5.0, chloride 106, CO2 is 26, BUN 32, creatinine 9.05. IMPRESSION AND PLAN: 1. Atrial fibrillation with rapid ventricular response, currently on Cardizem drip. His blood pressures are borderline. He has metoprolol ordered, because it has been held because of the concerns for hypotension. Cardiology consult and echocardiogram pending. 2. End-stage renal disease, on hemodialysis. Nephrology following. We will continue with his usual dialysis regimen. 3. Hyperkalemia, improved with subsequent dialysis. 4. Diarrhea, resolved. 5. History of posttraumatic stress disorder. Continue risperidone and mirtazapine. Job ID: [id number]
[2018-12-14 12:08] LABS: Hemoglobin 10.3 g/dL (14.0-18.0); Platelet Count 295 thou/uL (130-400)
[2018-12-14] MEDS: Midodrine HCl 5 MG TAB PO SCH ×2 (13:10→15:54)
--- NOTE | 2018-12-14 13:10 | PRG ---
DATE OF SERVICE: 12/14/2018 SUBJECTIVE: Patient was seen and examined at bedside and overnight events noted. Patient denies any shortness of breath or chest pain or palpitation. No history of nausea or vomiting or diarrhea or fever or chills or cramps. OBJECTIVE: GENERAL: This is a well-built male in no apparent distress. VITAL SIGNS: Temperature 98.8. Pulse 97. Respiratory rate 22. Blood pressure 142/82. HEENT: Atraumatic, normocephalic. Oral mucosa is moist. NECK: Supple. CARDIOVASCULAR: S1, S2 heard. Rate and rhythm regular. RESPIRATORY: Clear to auscultation. GASTROINTESTINAL: Abdomen is soft. MUSCULOSKELETAL: No tenderness. No edema. DERMATOLOGIC: No skin rash. NEUROLOGIC: Alert and awake and oriented X3. No focal neurologic deficits. Moving all the extremities. PSYCHIATRIC: Mood and affect normal. LABORATORY DATA: No labs done today. ASSESSMENT AND PLAN: 1. End-stage renal disease, Continue on hemodialysis. We will recheck labs in the morning. 2. Hyperkalemia. 3. Edema. 4. Hypertension. 5. Anemia. 6. Atrial fibrillation with arrhythmias present during dialysis. Continue close monitor. Follow up with Cardiology. Job ID: [id number]
[2018-12-14] MEDS: Aspirin 81 mg Enteric Coated Tablet PO SCH (13:59)
[2018-12-14] MEDS: Apixaban 2.5 MG TAB PO SCH ×2 (13:59→20:44)
[2018-12-14] MEDS: Sevelamer Carbonate 800 MG TAB PO SCH (14:04)
[2018-12-14] MEDS: Digoxin 0.125 MG TAB PO SCH ×2 (14:12→15:53)
[2018-12-14] MEDS: Metoprolol Tartrate 25 MG TAB PO SCH ×3 (14:14→20:55)
[2018-12-14] MEDS ORDERED: Digoxin 0.5 MG/2 ML AMP SLOW IVP SCH (18:00)
[2018-12-14] MEDS: Calcium Acetate 667 MG CAP PO SCH (18:27)
[2018-12-14] MEDS: Calcitriol 0.25 MCG CAP PO SCH (18:47)
--- NOTE | 2018-12-14 18:51 | PRG ---
DATE OF SERVICE: 12/14/2018 SUBJECTIVE: The patient is feeling okay. Does not have any significant new complaints today. He does continue to have some loose stool at times. Eating well. Actually, he says he feels pretty well today overall. OBJECTIVE: VITAL SIGNS: Temperature 98.8, pulse 97, BP 135/98. GENERAL APPEARANCE: Age-appropriate male, in no distress. Awake, alert, pleasant, and cooperative. HEART: Irregular rate and rhythm with no murmurs. Good rate control. LUNGS: Clear to auscultation bilaterally. ABDOMEN: Soft, nontender, and nondistended. EXTREMITIES: No significant edema. LABORATORY DATA: Shiga toxins, Campylobacter antigen assay negative. Stool culture normal. Clostridium difficile toxin negative. Stool for occult blood negative. Blood cultures negative at 48 hours. Hemoglobin 10.3, platelets 295. Creatinine 6.55. IMPRESSION AND PLAN: 1. Atrial fibrillation with rapid ventricular response, was seen by Cardiology. Still on the Cardizem drip, getting loaded with digoxin orally. I hope to wean the drip off once we loaded and has adequate rate control. His medications are limited by intermittent hypotension. Cardiology recommended increasing his Eliquis dose to 5 mg b.i.d. We will discuss with Nephrology. 2. Intermittent hypotension. The patient has a history of hypertension. Occasionally, he has drops in his blood pressure. He does take midodrine on dialysis days. That was clarified today and was ordered for him. 3. End-stage renal disease, on dialysis, followed by Nephrology, stable. 4. History of probable nonischemic cardiomyopathy with ejection fraction of 45% and normal stress test 3 months ago. 5. Diarrhea. It has actually resurfaced a bit. We will avoid the Lomotil given his cardiac situation. Give him some Kaopectate, see how he responds to that. 6. History of posttraumatic stress disorder. Continue risperidone and mirtazapine. Job ID: [id number] [facility]
[2018-12-14] MEDS: Cinacalcet HCl 30 MG TAB PO SCH (20:43)
[2018-12-14] MEDS: Dutasteride 0.5 MG CAP PO SCH (20:57)
[2018-12-14] MEDS: Mirtazapine 15 MG Soltab PO SCH (20:57)
[2018-12-15 05:43] LABS: Hemoglobin 9.7 g/dL (14.0-18.0); Platelet Count 274 thou/uL (130-400)
[2018-12-15 05:57] LABS: Anion Gap 17 mmol/L (10-20); BUN (Urea Nitrogen) 32 mg/dL (8.4-25.7); Calc. Creatinine Clearance 14 mL/min (70-130); Calcium 8.8 mg/dL (7.8-10.44); Carbon Dioxide 29 mmol/L (23-31); Chloride 100 mmol/L (98-107); Estimated GFR-MDRD 7; Glucose 96 mg/dL (83-110); Potassium 4.6 mmol/L (3.5-5.1); Sodium 141 mmol/L (136-145)
[2018-12-15 05:58] LABS: Digoxin 0.79 ng/mL (0.8-2.0)
[2018-12-15] MEDS: Calcium Acetate 667 MG CAP PO SCH ×3 (09:40→17:03)
[2018-12-15] MEDS: Digoxin 0.125 MG TAB PO SCH (09:40)
[2018-12-15] MEDS: Metoprolol Tartrate 25 MG TAB PO SCH (09:40)
[2018-12-15] MEDS: Aspirin 81 mg Enteric Coated Tablet PO SCH (09:40)
[2018-12-15] MEDS: Apixaban 2.5 MG TAB PO SCH (09:40)
--- NOTE | 2018-12-15 14:30 | PDOC.PN ---
- Subjective Encounter Start Date: 12/15/18 (f/u volume overload) Encounter Start Time: 14:28 Subjective: Pt has been refusing metoprolol, states his regroover d/c it -: a few months ago. He denies any n/v/abd pain/dyspnea or concerns -: is overall feeling well. A Fib was dx in 2003 - Objective Resuscitation Status - Order Detail: 12/12/18 12:18 Resuscitation Status Routine Resuscitation Status: FULL: Full Resuscitation Vital Signs & Weight: Vital Signs (12 hours) Temp Pulse Resp BP Pulse Ox 12/15/18 12:36 97.9 F 76 18 126/72 96 12/15/18 09:40 64 12/15/18 08:45 97.8 F 64 20 127/76 93 L 12/15/18 03:45 98.4 F 98 22 H 100/57 L 94 L Weight Weight 289 lb 12.8 oz I&O: 12/14/18 12/15/18 12/16/18 06:59 06:59 06:59 Intake Total 350 1320 Output Total 0 0 Balance 350 1320 Result Diagrams: 12/15/18 05:13 12/15/18 05:13 EKG Reviewed by me: Yes (a fib rate 70-100's) Phys Exam - Physical Examination Constitutional: NAD Respiratory: no wheezing, no rales, no rhonchi Cardiovascular: no significant murmur, irregular Gastrointestinal: soft, non-tender, no distention, positive bowel sounds Musculoskeletal: no edema Neurological: non-focal, moves all 4 limbs Skin: no rash Dx/Plan (1) Atrial fibrillation Code(s): I48.91 - UNSPECIFIED ATRIAL FIBRILLATION Status: Chronic Qualifiers: Comment: rate controlled, [facility] (2) Anemia of renal disease Code(s): D63.1 - ANEMIA IN CHRONIC KIDNEY DISEASE Status: Chronic (3) BPH (benign prostatic hyperplasia) Code(s): N40.0 - BENIGN PROSTATIC HYPERPLASIA WITHOUT LOWER URINRY TRACT SYMP Status: Chronic Qualifiers: (4) ESRD (end stage renal disease) on dialysis Code(s): N18.6 - END STAGE RENAL DISEASE; Z99.2 - DEPENDENCE ON RENAL DIALYSIS Status: Chronic (5) Hypertension Code(s): I10 - ESSENTIAL (PRIMARY) HYPERTENSION Status: Chronic Qualifiers: Hypertension type: essential hypertension Qualified Code(s): I10 - Essential (primary) hypertension (6) Obesity (BMI 30-39.9) Code(s): E66.9 - OBESITY, UNSPECIFIED Status: Chronic - Plan * Pt is sx resolved * disussed intention behind metoprolol for rate control - he desires to talk with Assistant Public Defender here * * pt has scheduled dialysis as outpatient tomorrow - reports he can be discharged to f/u there * * anticipate d/c when cleared by cardiology * * No changes to current plan of care. * * dvt prophy - ambulatory * gi prophy - not indicated * code status full * * .
[2018-12-15] MEDS ORDERED: Digoxin 0.5 MG/2 ML AMP SLOW IVP SCH (16:00)
[2018-12-15] MEDS: Calcitriol 0.25 MCG CAP PO SCH (18:51)
--- NOTE | 2018-12-15 19:02 | PRG ---
DATE OF SERVICE: 12/15/2018 SUBJECTIVE: Patient was seen and examined at bedside and overnight events noted. Patient denies any shortness of breath or chest pain or palpitation. No history of nausea or vomiting or diarrhea or fever or chills or cramps. OBJECTIVE: GENERAL: This is a well-built male, in no apparent distress. VITAL SIGNS: Temperature 97.9. Pulse 77, respiratory rate 18. Blood pressure 136/72. HEENT: Atraumatic, normocephalic. Oral mucosa is moist NECK: Supple. CARDIOVASCULAR: S1, S2 heard. Rate and rhythm regular. RESPIRATORY: Clear to auscultation. GASTROINTESTINAL: Abdomen is soft. MUSCULOSKELETAL: No tenderness. No edema. DERMATOLOGIC: No skin rash. NEUROLOGIC: Alert and awake and oriented X3. No focal neurologic deficits. Moving all the extremities. PSYCHIATRIC: Mood and affect normal. LABORATORY DATA: Potassium is 4.6, BUN is 32, creatinine is 6.7. ASSESSMENT AND PLAN: 1. End-stage renal disease. Continue dialysis Tuesday, and Tuesday. 2. Hyperkalemia. 3. Edema. 4. Hypertension, stable. 5. Anemia. 6. Atrial fibrillation. Labs are stable. Continue on dialysis as tolerated. Job ID: [id number]
[2018-12-15] MEDS: Dutasteride 0.5 MG CAP PO SCH (21:17)
[2018-12-15] MEDS: Cinacalcet HCl 30 MG TAB PO SCH (21:18)
[2018-12-15] MEDS: Apixaban 5 MG TAB PO SCH (21:19)
[2018-12-15] MEDS: Mirtazapine 15 MG Soltab PO SCH (21:25)
[2018-12-16 06:06] LABS: Hemoglobin 9.9 g/dL (14.0-18.0); Platelet Count 295 thou/uL (130-400)
[2018-12-16] MEDS: Midodrine HCl 5 MG TAB PO SCH (09:06)
--- NOTE | 2018-12-16 14:02 | PDOC.CTH ---
Cardiology Progress Note - Subjective The pt seen and examined. No overnight events. No cardiac complaints. - Objective Vital Signs Temp Pulse Resp BP BP Pulse Ox 12/16/18 08:00 97.8 F 89 18 138/68 93 L 12/16/18 03:25 98.2 F 100 20 116/54 L 93 L Weight 289 lb 12.8 oz 12/15/18 12/16/18 12/17/18 06:59 06:59 06:59 Intake Total 1320 1310 Output Total 0 Balance 1320 1310 - Physical Examination General/Neuro: alert & oriented x3 Neck: no JVD present Lungs: CTA Heart: other: (irregualr) Abdomen: soft Extremities: other: (No edema) - Telemetry Telemetry Rhythm: Afib 100-140s - Labs Result Diagrams: 12/16/18 05:18 12/16/18 05:18 - Assessment/Plan 1. A fib - Increase Dig from 0.0625mg to 0.125mg qd for elevated HR 120-140s today. The pt is refusing to take BBlocker. 2. ESRD with HD - HD today 3. Non-ischemic CMY with EF 40-45% 4. Hypertension - The pt is refusing BBlocker or any BP med because his BP tends to be low after HD 5. Anemia MAR reviewed * Dr Esparzas @ [facility]. <addendum> Digoxin will be back to 0.0625mg qd due to high risk of Dig toxicity. Review of Systems - Review of Systems Constitutional: reports: no symptoms reported EENTM: reports: no symptoms reported Respiratory: reports: no symptoms reported Cardiac (ROS): reports: no symptoms reported ABD/GI: reports: no symptoms reported : reports: no symptoms reported
[2018-12-16] MEDS ORDERED: Digoxin 0.25 MG TAB PO SCH (14:15)
[2018-12-16] MEDS: Aspirin 81 mg Enteric Coated Tablet PO SCH (14:26)
[2018-12-16] MEDS: Calcium Acetate 667 MG CAP PO SCH ×3 (14:26→14:28)
[2018-12-16] MEDS: Apixaban 5 MG TAB PO SCH (14:26)
[2018-12-16] MEDS ORDERED: Digoxin 0.125 MG TAB PO SCH (14:30)
[2018-12-16] MEDS ORDERED: PROVENTIL INHALER 6.7 G (200 INHALATIONS) INH PRN (14:43)
[2018-12-16] MEDS ORDERED: IRON SUCROSE COMPLEX IVPB SCH (14:45)
[2018-12-16] MEDS ORDERED: Cinacalcet HCl 30 MG TAB PO SCH (14:45)
--- NOTE | 2018-12-16 15:08 | PRG ---
DATE OF SERVICE: 12/16/2018 SUBJECTIVE: Patient was seen and examined at bedside and overnight events noted. Patient denies any shortness of breath or chest pain or palpitation. No history of nausea or vomiting or diarrhea or fever or chills or cramps. OBJECTIVE: GENERAL: This is a well-built male in no apparent distress. VITAL SIGNS: Temperature 97.8. Heart rate . Respiratory rate . Blood pressure 138/60. HEENT: Atraumatic, normocephalic. Oral mucosa is moist NECK: Supple. CARDIOVASCULAR: S1, S2 heard. Rate and rhythm regular. RESPIRATORY: Clear to auscultation. GASTROINTESTINAL: Abdomen is soft. MUSCULOSKELETAL: No tenderness. No edema. DERMATOLOGIC: No skin rash. NEUROLOGIC: Alert and awake and oriented X3. No focal neurologic deficits. Moving all the extremities. PSYCHIATRIC: Mood and affect normal. LABORATORY DATA: Not done today. ASSESSMENT AND PLAN: 1. End-stage renal disease. Continue dialysis Tuesday, , and Tuesday. 2. Hyperkalemia. 3. Hypertension. 4. Anemia. 5. Edema. Continue on dialysis as tolerated. Job ID: [id number]
--- NOTE | 2018-12-16 15:39 | EKG ---
Test Reason : Blood Pressure : / mmHG Vent. Rate : 107 BPM Atrial Rate : 381 BPM P-R Int : 000 ms QRS Dur : 070 ms QT Int : 336 ms P-R-T Axes : 000 025 100 degrees QTc Int : 448 ms Atrial flutter with variable A-V block Nonspecific T wave abnormality No STEMI Abnormal ECG Confirmed by MEAGHAN Doe, LOTUS ([id number]), telegraph editor SERAFIN STREETER ([id number]) on 12/16/2018 3:39:18 PM Referred By: Confirmed By:LOTUS HARDING M.D.
[2018-12-16] MEDS ORDERED: Calcium Acetate 667 MG CAP PO SCH (17:00)
[2018-12-16 17:21] VITALS: BP 131/82; TEMP 97.8
[2018-12-16] MEDS: Calcitriol 0.25 MCG CAP PO SCH (17:56)
[2018-12-16] MEDS ORDERED: Folic Acid/Vit B Comp W-C PO SCH (18:00)
--- NOTE | 2018-12-16 19:29 | DIS ---
DATE OF ADMISSION: 12/12/2018 DATE OF DISCHARGE: 12/16/2018 CONSULTANTS: 1. Dr. Moore of Cardiology. 2. Dr. Mckinley of Nephrology. PROCEDURE PERFORMED: Hemodialysis. MEDICATIONS: Medications are reconciled at discharge. New medications: 1. Digoxin 0.125 mg - 1/2 tablet p.o. daily. Changed medications: Eliquis is increased to 5 mg p.o. b.i.d. Discontinued medications are none. Resume medications: 1. Albuterol inhaler two puffs every 6 hours as needed. 2. PhosLo 667 mg two capsules t.i.d. with meals. 3. Vitamin D 2000 units daily. 4. Sensipar 30 mg on dialysis days. 5. Dutasteride 0.5 mg on dialysis days. 6. Dialyvite one tablet p.o. daily. 7. Iron infusions per his usual hemodialysis routine. 8. Midodrine 5 mg p.o. on dialysis days. 9. Mirtazapine 30 mg at bedtime. 10. Risperidone 0.5 mg at bedtime. FINAL DIAGNOSES: 1. Volume overload, secondary to end-stage renal disease, on hemodialysis. 2. Atrial fibrillation with rapid ventricular response, now rate controlled. SECONDARY DIAGNOSES: 1. End-stage renal disease, on hemodialysis. 2. Anemia of chronic renal disease. 3. Mildly depressed ejection fraction by echocardiogram, 40-45% HISTORY OF PRESENT ILLNESS: Mr. Hutton is a 73-year-old male with the above medical problems, who presented to the emergency room secondary to having diarrhea. He visited his primary care provider, had a high potassium level and was directed to the emergency room. The patient was admitted to the hospital, received emergency dialysis and was started on a Cardizem drip for the atrial fibrillation with RVR. HOSPITAL COURSE: The patient was managed on the Cardizem drip, digoxin was added, and Cardizem drip was stopped. Over the past 24 hours has been rate controlled with atrial fibrillation in the rate of 70s to 110s, higher when he is up and ambulating. He denies any symptoms associated with this. He does have a history of atrial fibrillation and was on Eliquis. The dosing of the Eliquis was re- evaluated here and increased up to 5 mg twice per day. He was also started on a low-dose aspirin - which is being discontinued at discharge. There was a plan to start metoprolol; however, the patient had refused this here as he had been on in the past, and it was discontinued by his primary Instrument Lens Generator Dr. Rahman. Given that he is rate controlled on the digoxin alone, this was not started. The dose of digoxin was lowered on day of discharge, and will need reassessment with Dr. Rahman. The patient did undergo hemodialysis few days consecutively for the volume overload. He is tolerating this well and is asymptomatic currently. He will return to his usual //Tue schedule. The patient has been kept on his usual medications while here, the only change is the Eliquis is increased. The patient is overall feeling well. Does meet criteria for discharge to home. PHYSICAL EXAMINATION: GENERAL: On day of discharge, blood pressure 116/54, pulse 100, temperature 98.2, saturation is 93% on room air, and respirations 20. GENERAL: Awake, alert, responsive, in no apparent distress. Able to speak in regular sentences. LUNGS: Clear to auscultation bilateral. HEART: Normal S1, S2. Regular rate and rhythm. No audible murmurs. ABDOMEN: Soft with present bowel sounds. Nontender, nondistended. EXTREMITIES: No pitting edema. RYAN FINDINGS AND TEST RESULTS: Hemoglobin today 9.9. CBC on 12/11; 7.1, 9.6, 29.3, and 285. Renal panel on 12/15, 141, 4.6, 100, 29, 32, 8.7, 796. Digoxin level yesterday morning 0.79. Hepatitis B negative. Blood cultures on 12/12, negative x2. Stool occult blood negative. Clostridium difficile on 12/13, negative. Stool culture on 12/13, negative. No gram-negative, normal enteric meredith to moderate gram-positive, normal enteric merdeith including yeast. Campylobacter and Shiga negative. Echocardiogram performed on 12/13, showed an EF estimated at 40% to 45%, left atrium moderately dilated, mild MR, mild TR, and technically difficult study. DIET: Renal prudent. ACTIVITY: As tolerated. The patient advised that if his resting heart rate is around 100 or 110 and he may have decreased exercise tolerance. DISCHARGE FOLLOWUP: 1. He will follow up with Dr. Rahman, his primary aluminum siding mechanic to discuss any concerns and reconsider beta-yolette therapy in the future if he becomes symptomatic, and to re-evaluate and refill the digoxin. 2. Follow up with the primary care provider as needed. 3. Follow up with dialysis/Dr. Mckinley on a normal Tuesday, , and Tuesday schedule. CODE STATUS: Full. DISCHARGE DISPOSITION: Home. Reviewed with the patient this hospitalization, discharge medications, importance of followup, and seek care precautions. Of note - a prescription was sent to [facility] in [facility] for 0.125 mg digoxin - I called and cancelled this with their Pharmacist. A new prescription for the lower dose was electronically sent. No questions or further needs at the end of evaluation. Total time coordinating discharge is 50 minutes. Job ID: [id number] [facility]
[2018-12-16] MEDS ORDERED: risperiDONE 0.25 MG TAB PO SCH (21:00)
[2018-12-16] MEDS ORDERED: Non-Formulary Item 1 EACH (Risperidone [Risperdal] 0.5 MG) PO SCH (21:00)
[2018-12-17] MEDS ORDERED: Digoxin 0.125 MG TAB PO SCH ×2 (09:00)
== END 2018-12-16 18:04 | disposition home or self-care (01) | DRG 640 ==
LOC: ERS 18:56 → ERHOLD 20:47 → OBSVTOIN 12-12 17:17 → 2NO 12-12 19:23
PROVIDERS: ADMIT Internal Medicine; ATTEND Internal Medicine
PROC: 5A1D70Z Performance of Urinary Filtration, Intermittent, Less than 6 Hours Per Day (ICD-10-PCS; principal; 2018-12-12)
DX: E87.70 Fluid overload, unspecified (principal); N18.6 End stage renal disease; I13.2 Hypertensive heart and chronic kidney disease with heart failure and with stage 5 chronic kidney disease, or end stage renal disease; I42.8 Other cardiomyopathies; E87.5 Hyperkalemia; I48.2 Chronic atrial fibrillation; N40.0 Benign prostatic hyperplasia without lower urinary tract symptoms; Z79.01 Long term (current) use of anticoagulants; D63.1 Anemia in chronic kidney disease; I50.9 Heart failure, unspecified; Z79.899 Other long term (current) drug therapy; I95.9 Hypotension, unspecified; E66.9 Obesity, unspecified; F43.10 Post-traumatic stress disorder, unspecified; R19.7 Diarrhea, unspecified; Z99.2 Dependence on renal dialysis; Z68.39 Body mass index [BMI] 39.0-39.9, adult
CPT/HCPCS: 36415; 80048; 80053; 80162; 82274; 82565; 85014; 85018; 85025; 85049; 86706; 87040; 87045; 87046; 87324; 87340; 87449; 87899; 90935; 93005; 93306; 96365; 96366; 96376; G0257; J1160; J7050

== ENCOUNTER 2019-01-19 11:27 | Emergency (ER) | payer MEDICARE, BC ==
--- NOTE | 2019-01-19 12:19 | RAD ---
SINGLE VIEW OF THE CHEST: COMPARISON: 08/08/2017. HISTORY: Tachycardia and chest pain. FINDINGS: A single view of the chest shows an enlarged but stable cardiomediastinal silhouette. There is no ev idence of consolidation, mass, or pleural effusion. IMPRESSION: Stable cardiomegaly. POS: [facility]
[2019-01-19 13:12] LABS: #Eosinphils 0.2 thou/uL (0.0-0.7); #Lymphocytes 1.6 thou/uL (1.20-3.40); #Monocytes 0.4 thou/uL (0.11-0.59); #Neutrophils 3.6 thou/uL (1.40-6.50); %Basophils 0.7 % (0.0-1.0); %Eosinophils 2.7 % (0.0-10.0); %Lymphocytes 27.4 % (21.0-51.0); %Monocytes 6.8 % (0.0-10.0); %Neutrophils 62.3 % (42.0-75.0); Hemoglobin 10.3 g/dL (14.0-18.0); Mean Corpuscular HGB CONC 31.2 g/dL (32.0-36.0); Mean Corpuscular Hemoglobin 30.2 pg (27.0-31.0); Mean Platelet Volume 7.2 fL (7.4-10.4); Platelet Count 261 thou/uL (130-400); RBC Distribution Width 17.1 % (11.5-14.5); Red Blood Cell (RBC) Count 3.41 mill/uL (4.70-6.10); White Blood Cell (WBC) Count 5.8 thou/uL (4.8-10.8)
[2019-01-19 13:15] LABS: INR-International Normal Ratio 1.1; Prothrombin Time 13.9 SEC (12.0-14.7)
[2019-01-19 13:31] LABS: ALT (SGPT) 15 U/L (8-55); AST (SGOT) 14 U/L (5-34); Albumin 3.8 g/dL (3.4-4.8); Alkaline Phosphatase 52 U/L (40-150); Anion Gap 17 mmol/L (10-20); BUN (Urea Nitrogen) 36 mg/dL (8.4-25.7); Bilirubin, Total 0.6 mg/dL (0.2-1.2); Calc. Creatinine Clearance 0 mL/min (70-130); Calcium 9.7 mg/dL (7.8-10.44); Carbon Dioxide 29 mmol/L (23-31); Chloride 100 mmol/L (98-107); Digoxin 0.36 ng/mL (0.8-2.0); Estimated GFR-MDRD 8; Glucose 95 mg/dL (83-110); Potassium 4.6 mmol/L (3.5-5.1); Protein, Total 6.8 g/dL (5.8-8.1); Sodium 141 mmol/L (136-145)
== END 2019-01-19 16:16 | disposition left against medical advice (07) ==
LOC: ERS 11:27
DX: I48.91 Unspecified atrial fibrillation (principal); M19.90 Unspecified osteoarthritis, unspecified site; Z79.899 Other long term (current) drug therapy
CPT/HCPCS: 36415; 71045; 80053; 80162; 82553; 83880; 84484; 85025; 85610; 93005

== ENCOUNTER 2022-09-06 10:47 | Day surgery (SDC) | payer MEDICARE, BC ==
[2022-09-03 13:30] VITALS: BMI 31.4
[2022-09-06 12:50] LABS: Hemoglobin 11.6 g/dL (14.0-18.0); Mean Corpuscular HGB CONC 30.4 g/dL (32.0-36.0); Mean Corpuscular Hemoglobin 30.2 pg (27.0-31.0); Mean Corpuscular Volume 99.3 fl (78.0-98.0); Mean Platelet Volume 8.9 fL (7.4-10.4); Platelet Count 185 10x3/uL (130-400); RBC Distribution Width 17.7 % (11.5-14.5); Red Blood Cell (RBC) Count 3.85 mill/uL (4.70-6.10); White Blood Cell (WBC) Count 9.3 10x3/uL (4.8-10.8)
[2022-09-06 13:07] LABS: Anion Gap 17 mmol/L (10-20); BUN (Urea Nitrogen) 34 mg/dL (8.4-25.7); Calc. Creatinine Clearance 10 mL/min (70-130); Calcium 10.2 mg/dL (7.8-10.44); Carbon Dioxide 29 mmol/L (23-31); Chloride 101 mmol/L (98-107); Estimated GFR 5; Glucose 88 mg/dL (83-110); Potassium 3.7 mmol/L (3.5-5.1); Sodium 143 mmol/L (136-145)
[2022-09-06 13:28] LABS: Anisocytosis SLIGHT = 6-15 cells (100X) (0-5/hpf); Band 3 % (5-11); Eosinophils 34 % (0-10); Lymphocytes 13 % (21-51); MDiff Complete? YES; Monocytes 5 % (0-10); Neutrophil 41 % (42-75); Ovalocytes SLIGHT = 2-5 cells (100X) (0-1/hpf); Platelet Morphology Comment Appears Adequate; Polychromasia SLIGHT = 2-3 cells (100X) (0-2/hpf); Schistocytes SLIGHT = 2-5 cells (100X) (0-1/hpf)
[2022-09-06] MEDS ORDERED: fentaNYL PF 100 MCG/2 ML SYRINGE ONE (14:42)
[2022-09-06] MEDS ORDERED: Ioversol 68 % 50 ML VIAL ONE (14:48)
[2022-09-06] MEDS ORDERED: Protamine Sulfate 50 MG/5 ML VIAL ONE (14:48)
[2022-09-06] MEDS ORDERED: Heparin 5,000 UNITS/ML VIAL ONE (14:48)
[2022-09-06] MEDS ORDERED: Bupivacaine HCl 0.5%/Epinephrine 1:200,000/PF 30 ml Vial ONE (14:48)
[2022-09-06] MEDS ORDERED: Heparin 10,000 UNITS/ 10 ML VIAL ONE (14:48)
[2022-09-06] MEDS ORDERED: Lidocaine 2% PF 5 ML VIAL ONE (14:48)
[2022-09-06] MEDS ORDERED: CEFAZOLIN 2 GM VIAL ONE (15:04)
[2022-09-06] MEDS ORDERED: Sodium Chloride 0.9% 100 ML ONE (15:04)
[2022-09-06] MEDS ORDERED: Phenylephrine 10 MG/ML VIAL ONE (15:17)
[2022-09-06] MEDS ORDERED: PROPOFOL 200 MG/20 ML VIAL ONE (15:17)
[2022-09-06] MEDS ORDERED: Ondansetron PF 4 MG/2 ML Vial ONE (15:17)
[2022-09-06] MEDS ORDERED: Rocuronium Bromide 10 MG/ML (10ML VIAL) ONE (15:17)
[2022-09-06] MEDS ORDERED: SUGAMMADEX SODIUM 200 MG/2 ML VIAL ONE (17:27)
[2022-09-06] MEDS ORDERED: FENTANYL 50 MCG/ML 1 ML VIAL ONE ×2 (18:02→18:16)
[2022-09-06] MEDS ORDERED: HYDROcodone/Acetaminophen 5/325 mg Tablet ONE ×2 (18:33→19:18)
[2022-09-06] MEDS ORDERED: Morphine 2 MG/ML VIAL ONE (19:08)
== END 2022-09-06 20:17 | disposition home or self-care (01) ==
LOC: SDC 10:47
PROVIDERS: ATTEND Specialist
PROC: 03180JV Bypass Left Brachial Artery to Superior Vena Cava with Synthetic Substitute, Open Approach (ICD-10-PCS; principal; 2022-09-06)
DX: T82.590A Other mechanical complication of surgically created arteriovenous fistula, initial encounter (principal); I12.0 Hypertensive chronic kidney disease with stage 5 chronic kidney disease or end stage renal disease; N18.6 End stage renal disease; I42.9 Cardiomyopathy, unspecified; N25.81 Secondary hyperparathyroidism of renal origin; N40.0 Benign prostatic hyperplasia without lower urinary tract symptoms; J45.909 Unspecified asthma, uncomplicated; Z79.899 Other long term (current) drug therapy; Z99.2 Dependence on renal dialysis
CPT/HCPCS: 36558; 36830; 71045; 80048; 85025; 93005; C1750; C1752; C1769; C1776; J2270; J3010; 93010; J1644; J2001; J2370; J2405; J2704; J2720; J3490; Q9967